=== PATIENT | male | born 1960 | race Caucasian/White ===

== ENCOUNTER 2017-07-04 09:08 | Inpatient (IN) | payer MEDICARE, OTHER ==
[~2017-07-04] VITALS: Ht 172.7 cm; Wt 72.8 kg
[~2017-07-04 09:08] MED LIST: ACET500 PO; ACYC200; ALBIPROI INH; ALBU90OI INH; AMLO5; ATOR10; ATOR10 PO; BENADRYL25 MG PO; BETA.05TC TOP; BUPR150T2; CALCAVITDA; CLON1; CLON1 PO; Cipro500 MG PO; DIPH50; DIVA500EC PO; ESCI10; ESCI20; Epzicom Tablet1 EACH PO; FLUC100 PO; Flagyl500 MG PO; GEMF600; HYDACE5 PO; HYDR1TAB94 PO; IBUP800; KALETRA; LEVOTHYROXIN; LEVSOD100; LEVSOD50; LEVSOD50 PO; Loxapine25 MG PO; MULVITMINE; OXYACE7.5T; PROM25 PO; QUET300; QUETIAPINE FUM400 MG PO; RALT400 PO; RANI150 PO; RITLOP; SUSTIVA PO; TENO300; VITB100; Zofran Odt4 MG SL; [UNRECOGNIZED DRUG - CODE]; [UNRECOGNIZED DRUG - CODE]
[2017-07-04 09:41] LABS: Source, Urine Catheter
[2017-07-04 09:44] LABS: Bilirubin, Urine Neg (Neg); Blood, Urine Neg (Neg); Glucose Qualitative, Urine Neg (Neg); Ketones, Urine Neg (Neg); Leukocyte Esterase, Urine Neg (Neg); Nitrite, Urine Neg (Neg); Protein, Urine Neg (Neg); Urobilinogen, Urine NORM (Normal)
[2017-07-04 09:47] LABS: Appearance, Urine Clear (Clear); Color, Urine Yellow (P-Yellow)
[2017-07-04 10:07] LABS: BASOPHILS ABSOLUTE AUTO 0.02 K/mm3 (0.00-0.23); BASOPHILS PERCENT AUTO 0 % (0-2); EOSINOPHILS ABSOLUTE AUTO 0.17 K/mm3 (0.00-0.68); EOSINOPHILS PERCENT AUTO 2 % (0-6); Hemoglobin 15.6 g/dL (13.5-17.5); IMMATURE GRAN ABSOLUTE AUTO 0.02 K/mm3 (0.00-0.10); IMMATURE GRAN PERCENT AUTO 0 % (0-1); LYMPHOCYTES ABSOLUTE AUTO 2.45 K/mm3 (0.84-5.20); LYMPHOCYTES PERCENT AUTO 32 % (21-46); MONOCYTES ABSOLUTE AUTO 1.13 K/mm3 (0.16-1.47); MONOCYTES PERCENT AUTO 15 % (4-13); Mean Corpuscular HGB 36.7 pg (26.0-34.0); Mean Corpuscular HGB Conc 35.5 g/dL (31.5-36.5); Mean Corpuscular Volume 104 fL (80-100); Mean Platelet Volume 10.3 fL (9.1-12.4); NEUTROPHILS ABSOLUTE AUTO 3.81 K/mm3 (1.96-9.15); NEUTROPHILS PERCENT AUTO 50 % (41-73); Platelet Count 181 K/mm3 (150-400); RDW Standard Deviation 48.8 fL (35.1-46.3); Red Blood Cell Count 4.25 M/mm3 (4.30-5.90)
[2017-07-04 10:29] LABS: Alanine Aminotransfer (ALT/SGP 20 U/L (12-78); Albumin, Blood 4.5 g/dL (3.4-5.0); Albumin/Globulin Ratio 1.3 (0.8-1.8); Alk Phos 77 U/L (50-136); Anion Gap 8 mmol/L (6-16); Aspartate Aminotrans (AST/SGOT 52 U/L (12-37); Bilirubin, Total 0.3 mg/dL (0.1-1.0); Blood Urea Nitrogen 11 mg/dL (8-24); Bun/Creatinine Ratio 16.6 (12.0-20.0); CO2, Blood 25 mmol/L (21-32); Calcium, Blood 8.6 mg/dL (8.5-10.1); Chloride, Blood 101 mmol/L (98-108); Creatinine, Blood 0.66 mg/dL (0.60-1.20); Globulin, Blood 3.4 g/dL (2.2-4.0); Glomerular Filtration Rate >60 (60-); Glucose, Blood 121 mg/dL (70-99); Potassium, Blood 4.2 mmol/L (3.5-5.5); Sodium, Blood 134 mmol/L (136-145); Total Protein, Blood 7.9 g/dL (6.4-8.2)
[2017-07-04 10:30] LABS: Free Thyroxine 0.64 ng/dL (0.70-1.60)
[2017-07-04 10:31] LABS: Prothrombin Time Results 10.4 Sec (9.7-11.5)
[2017-07-04 10:32] LABS: Thyroid Stimulating Hormone 2.31 uIU/mL (0.360-4.800)
[2017-07-04 10:47] LABS: U Amphetamine Screen Not Detected; U Barbituate Screen Not Detected; U Benzodiazapine Screen Not Detected; U Buprenorphine Screen Not Detected; U Cannabinoids Screen DETECTED; U Cocaine Screen Not Detected; U Methadone Screen Not Detected; U Methamphetamine Screen Not Detected; U Opiates Screen Not Detected; U Oxycodone Screen Not Detected; U Phencyclidine Screen Not Detected; U Propoxyphene Screen Not Detected
[2017-07-04 11:03] LABS: Influenza A Negative (NEGATIVE)
[2017-07-04 11:04] LABS: Influenza B Negative (NEGATIVE)
[2017-07-04 12:03] LABS: Appearance, CSF Clear (Clear); Color, CSF No Color (No Color)
[2017-07-04 12:12] LABS: WBC Count, CSF 0 /mm3 (0-5)
[2017-07-04 12:13] LABS: RBC Count, CSF 16 /mm3 (0-0)
[2017-07-04 12:23] LABS: Glucose, CSF 70 mg/dL (40-70)
[2017-07-04 12:35] LABS: Cryptococcus Neoformans/Gattii Not Detected (NOT DETECT); Enterovirus Not Detected (NOT DETECT); Escherichia Coli K1 Not Detected (NOT DETECT); Haemophilus Influenza Not Detected (NOT DETECT); Herpes Simplex Virus 1 Not Detected (NOT DETECT); Herpes Simplex Virus 2 Not Detected (NOT DETECT); Human Herpesvirus 6 Not Detected (NOT DETECT); Human Parechovirus Not Detected (NOT DETECT); Listeria Monocytogenes Not Detected (NOT DETECT); Neisseria Meningitidis Not Detected (NOT DETECT); Streptococcus Agalactiae Not Detected (NOT DETECT); Streptococcus Pneumoniae Not Detected (NOT DETECT); Varicella Zoster Virus Not Detected (NOT DETECT)
[2017-07-04] MEDS ORDERED: OXYC5 PO (14:45)
[2017-07-04] MEDS ORDERED: QUET300 PO (14:49)
[2017-07-04] MEDS ORDERED: CLON1 PO (15:05)
[2017-07-04] MEDS ORDERED: ABAT250V (15:06)
[2017-07-04] MEDS ORDERED: Prilosec Otc20 MG PO (15:06)
[2017-07-05 01:52] LABS: Source Blood
[2017-07-05 07:41] LABS: Lymphocytes 31.8 % (15.0-48.0); WBC 7.5 K/uL (3.8-11.0)
[2017-07-05 10:50] LABS: CD4 31.5 % (30.0-65.0); CD4, Absolute 756 /uL (490-1400)
[2017-07-06] MEDS ORDERED: CIPR500 PO (08:54)
[2017-09-20] MEDS ORDERED: PROM25 (10:42)
[2017-09-20] MEDS ORDERED: Omeprazole20 M1 PO (16:26)
[2017-09-22] MEDS ORDERED: ATOR10 PO (11:08)
[2017-09-22] MEDS ORDERED: LACT10SY PO (11:08)
== END 2017-07-06 11:00 | disposition home or self-care (01) | DRG 975 ==
LOC: ER 09:08 → ICUE 11:31 → SURS 11:31 → MEDS 11:31 → ICUE 22:54 → SURS 07-05 22:16
PROVIDERS: Emergency Medicine
PROC: 009U3ZX Drainage of Spinal Canal, Percutaneous Approach, Diagnostic (ICD-10-PCS; principal; 2017-07-04)
DX: G93.40 Encephalopathy, unspecified (principal); B20 Human immunodeficiency virus [HIV] disease; N39.0 Urinary tract infection, site not specified; F41.9 Anxiety disorder, unspecified; F32.9 Major depressive disorder, single episode, unspecified; E03.9 Hypothyroidism, unspecified; E78.5 Hyperlipidemia, unspecified; F17.200 Nicotine dependence, unspecified, uncomplicated; F43.10 Post-traumatic stress disorder, unspecified; B96.1 Klebsiella pneumoniae [K. pneumoniae] as the cause of diseases classified elsewhere; Z88.5 Allergy status to narcotic agent; Z88.8 Allergy status to other drugs, medicaments and biological substances; Z79.899 Other long term (current) drug therapy
CPT/HCPCS: 36415; 51702; 62270; 70450; 70553; 71046; 80053; 81003; 82140; 82945; 83605; 84157; 84439; 84443; 85025; 85610; 85730; 86317; 86361; 86592; 87040; 87077; 87086; 87186; 87483; 87804; 89051; 93005; 93010; 94640; 96361; 96374; 96375; 96376; 99285; A9577; J0285; J1200; J1630; J1650; J2060; J2405; J2543; J3370; J7030; J7050; J7060

== ENCOUNTER 2017-11-01 18:46 | Observation (INO) | payer MEDICARE, OTHER ==
[~2017-11-01] VITALS: Ht 175.3 cm; Wt 75.4 kg
[~2017-11-01 18:46] MED LIST changes: +ABAT250V; +CIPR500 PO; +LACT10SY PO; +OXYC5 PO; +Omeprazole20 M1 PO; +PROM25; +Prilosec Otc20 MG PO; +QUET300 PO
[2017-11-01] MEDS ORDERED: OXYC5 PO (19:04)
[2017-11-01 19:05] LABS: Source, Urine Catheter
[2017-11-01 19:06] LABS: Appearance, Urine Clear (Clear); Bilirubin, Urine Neg (Neg); Blood, Urine Neg (Neg); Color, Urine Yellow (P-Yellow); Glucose Qualitative, Urine Neg (Neg); Ketones, Urine Neg (Neg); Leukocyte Esterase, Urine Neg (Neg); Nitrite, Urine Neg (Neg); Protein, Urine Neg (Neg); Specific Gravity, Urine 1.005 (1.003-1.022); Urobilinogen, Urine NORM (Normal)
[2017-11-01 19:07] LABS: BASOPHILS ABSOLUTE AUTO 0.05 K/mm3 (0.00-0.23); BASOPHILS PERCENT AUTO 1 % (0-2); EOSINOPHILS ABSOLUTE AUTO 0.12 K/mm3 (0.00-0.68); EOSINOPHILS PERCENT AUTO 2 % (0-6); Hematocrit 42.8 % (37.0-53.0); Hemoglobin 15.1 g/dL (13.5-17.5); IMMATURE GRAN ABSOLUTE AUTO 0.02 K/mm3 (0.00-0.10); IMMATURE GRAN PERCENT AUTO 0 % (0-1); LYMPHOCYTES PERCENT AUTO 37 % (21-46); MONOCYTES ABSOLUTE AUTO 0.93 K/mm3 (0.16-1.47); MONOCYTES PERCENT AUTO 13 % (4-13); Mean Corpuscular HGB 35.5 pg (26.0-34.0); Mean Corpuscular HGB Conc 35.3 g/dL (31.5-36.5); Mean Corpuscular Volume 101 fL (80-100); Mean Platelet Volume 10.5 fL (9.1-12.4); NEUTROPHILS ABSOLUTE AUTO 3.24 K/mm3 (1.96-9.15); NEUTROPHILS PERCENT AUTO 47 % (41-73); Platelet Count 204 K/mm3 (150-400); RDW Coefficient Variation 12.6 % (11.7-14.2); RDW Standard Deviation 46.8 fL (35.1-46.3); Red Blood Cell Count 4.25 M/mm3 (4.30-5.90); White Blood Cell Count 6.96 K/mm3 (4.00-11.30)
[2017-11-01 19:21] LABS: International Normalized Ratio 1.07; Prothrombin Time Results 11.2 Sec (9.7-11.5)
[2017-11-01 19:28] LABS: Alanine Aminotransfer (ALT/SGP 16 U/L (12-78); Albumin, Blood 4.4 g/dL (3.4-5.0); Albumin/Globulin Ratio 1.2 (0.8-1.8); Alk Phos 58 U/L (50-136); Anion Gap 9 mmol/L (6-16); Aspartate Aminotrans (AST/SGOT 16 U/L (12-37); Bilirubin, Total 0.2 mg/dL (0.1-1.0); Blood Urea Nitrogen 9 mg/dL (8-24); Bun/Creatinine Ratio 13.4 (12.0-20.0); CO2, Blood 23 mmol/L (21-32); Chloride, Blood 101 mmol/L (98-108); Creatinine, Blood 0.67 mg/dL (0.60-1.20); Ethanol (Alcohol), Blood, Med <3 mg/dL; Globulin, Blood 3.7 g/dL (2.2-4.0); Glomerular Filtration Rate >60 (60-); Glucose, Blood 117 mg/dL (70-99); Potassium, Blood 3.8 mmol/L (3.5-5.5); Sodium, Blood 133 mmol/L (136-145); Total Protein, Blood 8.1 g/dL (6.4-8.2)
[2017-11-01 19:39] LABS: U Amphetamine Screen Not Detected; U Barbituate Screen Not Detected; U Benzodiazapine Screen Not Detected; U Buprenorphine Screen Not Detected; U Cannabinoids Screen DETECTED; U Cocaine Screen Not Detected; U Methadone Screen Not Detected; U Methamphetamine Screen Not Detected; U Opiates Screen Not Detected; U Oxycodone Screen Not Detected; U Phencyclidine Screen Not Detected; U Propoxyphene Screen Not Detected
[2017-11-03 08:41] LABS: Valproic Acid 33.2 ug/mL (50.0-100.0)
== END 2017-11-05 10:35 | disposition home or self-care (01) ==
LOC: ER 18:46 → MEDS 18:47 → ENPENDDIS 11-05 08:10 → MEDS 11-05 10:35
PROVIDERS: Emergency Medicine; Psychiatry & Neurology Psychiatry
DX: R41.82 Altered mental status, unspecified (principal); F41.9 Anxiety disorder, unspecified; F32.9 Major depressive disorder, single episode, unspecified; B20 Human immunodeficiency virus [HIV] disease; F43.10 Post-traumatic stress disorder, unspecified; E78.5 Hyperlipidemia, unspecified; Z72.0 Tobacco use; Z88.5 Allergy status to narcotic agent; Z88.8 Allergy status to other drugs, medicaments and biological substances; Z88.6 Allergy status to analgesic agent; Z79.899 Other long term (current) drug therapy
CPT/HCPCS: 36415; 62270; 70450; 71046; 80053; 80164; 81003; 82140; 83605; 84443; 85025; 85610; 85730; 87040; 87086; 93005; 93010; 94760; 96360; 99285; G0378; G0480; J3010; J3360; J7030

== ENCOUNTER 2018-02-16 12:06 | Inpatient (IN) | payer MEDICARE, OTHER ==
[~2018-02-16] VITALS: Ht 177.8 cm; Wt 70.7 kg
[2018-02-16 12:44] LABS: PO2 Arterial 77.2 mmHg (80-100); pH Blood Arterial 7.39 (7.35-7.45)
[2018-02-16 13:01] LABS: BASOPHILS ABSOLUTE AUTO 0.05 K/mm3 (0.00-0.23); BASOPHILS PERCENT AUTO 1 % (0-2); EOSINOPHILS ABSOLUTE AUTO 0.04 K/mm3 (0.00-0.68); EOSINOPHILS PERCENT AUTO 0 % (0-6); Hematocrit 44.6 % (37.0-53.0); Hemoglobin 15.6 g/dL (13.5-17.5); IMMATURE GRAN ABSOLUTE AUTO 0.03 K/mm3 (0.00-0.10); IMMATURE GRAN PERCENT AUTO 0 % (0-1); LYMPHOCYTES ABSOLUTE AUTO 1.87 K/mm3 (0.84-5.20); LYMPHOCYTES PERCENT AUTO 18 % (21-46); MONOCYTES ABSOLUTE AUTO 1.19 K/mm3 (0.16-1.47); MONOCYTES PERCENT AUTO 12 % (4-13); Mean Corpuscular HGB 34.6 pg (26.0-34.0); Mean Corpuscular Volume 99 fL (80-100); Mean Platelet Volume 9.9 fL (9.1-12.4); NEUTROPHILS ABSOLUTE AUTO 7.04 K/mm3 (1.96-9.15); NEUTROPHILS PERCENT AUTO 69 % (41-73); Platelet Count 315 K/mm3 (150-400); RDW Coefficient Variation 13.5 % (11.7-14.2); RDW Standard Deviation 49.6 fL (35.1-46.3); Red Blood Cell Count 4.51 M/mm3 (4.30-5.90); White Blood Cell Count 10.22 K/mm3 (4.00-11.30)
[2018-02-16 13:14] LABS: Alanine Aminotransfer (ALT/SGP 22 U/L (12-78); Albumin, Blood 4.7 g/dL (3.4-5.0); Albumin/Globulin Ratio 1.3 (0.8-1.8); Alk Phos 61 U/L (50-136); Anion Gap 9 mmol/L (6-16); Aspartate Aminotrans (AST/SGOT 33 U/L (12-37); Bilirubin, Total 0.6 mg/dL (0.1-1.0); Blood Urea Nitrogen 36 mg/dL (8-24); CO2, Blood 24 mmol/L (21-32); Calcium, Blood 9.2 mg/dL (8.5-10.1); Chloride, Blood 107 mmol/L (98-108); Creatinine, Blood 0.82 mg/dL (0.60-1.20); Globulin, Blood 3.5 g/dL (2.2-4.0); Glomerular Filtration Rate >60 (60-); Glucose, Blood 133 mg/dL (70-99); Potassium, Blood 4.1 mmol/L (3.5-5.5); Sodium, Blood 140 mmol/L (136-145); Total Protein, Blood 8.2 g/dL (6.4-8.2)
[2018-02-16 13:15] LABS: Calcium, Ionized (POC) 1.17 mmol/L (1.10-1.46); Chloride (POC) 105 mmol/L (98-108); Creatinine (POC) 0.9 mg/dL (0.8-1.3); Glucose (ISTAT POC) 131 mg/dL (70-99); Hemoglobin (POC) 16.3 g/dL (13.5-17.5); Potassium (POC) 4.2 mmol/L (3.5-5.5); Sodium (POC) 141 mmol/L (135-148); Total CO2 (POC) 25 mmol/L (21-32)
[2018-02-16 14:24] LABS: Salicylate 4.8 mg/dL (2.8-20.0)
[2018-02-16 14:27] LABS: Acetaminophen, Random <2.0 ug/mL (10.0-30.0)
[2018-02-16 14:56] LABS: Source, Urine Clean Catch
[2018-02-16 14:59] LABS: Appearance, Urine Clear (Clear); Bilirubin, Urine Neg (Neg); Blood, Urine Neg (Neg); Color, Urine Yellow (P-Yellow); Glucose Qualitative, Urine Neg (Neg); Ketones, Urine 1+ (Neg); Leukocyte Esterase, Urine 1+ (Neg); Nitrite, Urine Neg (Neg); Protein, Urine 2+ (Neg); Specific Gravity, Urine 1.025 (1.003-1.022); Urobilinogen, Urine NORM (Normal)
[2018-02-16 15:27] LABS: Bacteria Few /hpf; Mucus Light (0-Heavy); Red Blood Cells, Urine 0-2 /hpf (0-2); Squamous Epithelial Cells Few /hpf (Few)
[2018-02-16 15:31] LABS: U Amphetamine Screen Not Detected; U Barbituate Screen Not Detected; U Benzodiazapine Screen Not Detected; U Buprenorphine Screen Not Detected; U Cannabinoids Screen DETECTED; U Cocaine Screen Not Detected; U Methadone Screen Not Detected; U Methamphetamine Screen Not Detected; U Opiates Screen Not Detected; U Oxycodone Screen Not Detected; U Phencyclidine Screen Not Detected; U Propoxyphene Screen Not Detected
[2018-02-16 16:56] LABS: Valproic Acid <3.0 ug/mL (50.0-100.0)
[2018-02-16 17:44] LABS: Creatine Kinase MB 6.9 ng/mL (0.0-3.6); Creatine Kinase MB Index 0.7 (0.0-4.0)
[2018-02-17 05:10] LABS: Hematocrit 40.8 % (37.0-53.0); Hemoglobin 13.4 g/dL (13.5-17.5); Mean Corpuscular HGB 33.3 pg (26.0-34.0); Mean Corpuscular HGB Conc 32.8 g/dL (31.5-36.5); Mean Platelet Volume 10.1 fL (9.1-12.4); Platelet Count 245 K/mm3 (150-400); RDW Coefficient Variation 13.8 % (11.7-14.2); RDW Standard Deviation 51.7 fL (35.1-46.3); Red Blood Cell Count 4.02 M/mm3 (4.30-5.90); White Blood Cell Count 8.56 K/mm3 (4.00-11.30)
[2018-02-17 05:15] LABS: Mean Corpuscular Volume 102 fL (80-100)
[2018-02-17 05:52] LABS: Alanine Aminotransfer (ALT/SGP 20 U/L (12-78); Albumin, Blood 3.6 g/dL (3.4-5.0); Albumin/Globulin Ratio 1.3 (0.8-1.8); Alk Phos 45 U/L (50-136); Anion Gap 7 mmol/L (6-16); Aspartate Aminotrans (AST/SGOT 26 U/L (12-37); Bilirubin, Total 0.5 mg/dL (0.1-1.0); Blood Urea Nitrogen 23 mg/dL (8-24); Bun/Creatinine Ratio 28.9 (12.0-20.0); CO2, Blood 24 mmol/L (21-32); Calcium, Blood 7.7 mg/dL (8.5-10.1); Chloride, Blood 111 mmol/L (98-108); Globulin, Blood 2.8 g/dL (2.2-4.0); Glomerular Filtration Rate >60 (60-); Glucose, Blood 83 mg/dL (70-99); Potassium, Blood 3.7 mmol/L (3.5-5.5); Sodium, Blood 142 mmol/L (136-145); Total Protein, Blood 6.4 g/dL (6.4-8.2)
[2018-02-20 05:28] LABS: BASOPHILS ABSOLUTE AUTO 0.04 K/mm3 (0.00-0.23); BASOPHILS PERCENT AUTO 1 % (0-2); EOSINOPHILS ABSOLUTE AUTO 0.23 K/mm3 (0.00-0.68); EOSINOPHILS PERCENT AUTO 4 % (0-6); Hematocrit 39.8 % (37.0-53.0); Hemoglobin 13.5 g/dL (13.5-17.5); IMMATURE GRAN PERCENT AUTO 0 % (0-1); LYMPHOCYTES ABSOLUTE AUTO 2.72 K/mm3 (0.84-5.20); LYMPHOCYTES PERCENT AUTO 47 % (21-46); MONOCYTES ABSOLUTE AUTO 0.52 K/mm3 (0.16-1.47); MONOCYTES PERCENT AUTO 9 % (4-13); Mean Corpuscular HGB 34.5 pg (26.0-34.0); Mean Corpuscular HGB Conc 33.9 g/dL (31.5-36.5); Mean Corpuscular Volume 102 fL (80-100); NEUTROPHILS ABSOLUTE AUTO 2.25 K/mm3 (1.96-9.15); NEUTROPHILS PERCENT AUTO 39 % (41-73); Platelet Count 214 K/mm3 (150-400); RDW Coefficient Variation 13.2 % (11.7-14.2); RDW Standard Deviation 49.9 fL (35.1-46.3); Red Blood Cell Count 3.91 M/mm3 (4.30-5.90); White Blood Cell Count 5.76 K/mm3 (4.00-11.30)
[2018-02-20 05:47] LABS: Anion Gap 7 mmol/L (6-16); Blood Urea Nitrogen 12 mg/dL (8-24); Bun/Creatinine Ratio 14.8 (12.0-20.0); CO2, Blood 27 mmol/L (21-32); Calcium, Blood 8.5 mg/dL (8.5-10.1); Chloride, Blood 107 mmol/L (98-108); Creatinine, Blood 0.81 mg/dL (0.60-1.20); Glomerular Filtration Rate >60 (60-); Glucose, Blood 104 mg/dL (70-99); Potassium, Blood 3.8 mmol/L (3.5-5.5); Sodium, Blood 141 mmol/L (136-145)
[2018-02-22] MEDS ORDERED: Epzicom Tablet1 EACH PO (10:54)
[2018-02-22] MEDS ORDERED: EFAV200 PO (10:55)
[2018-02-22] MEDS ORDERED: RALT400 PO (10:56)
[2018-02-22] MEDS ORDERED: AMLO5 PO (10:57)
[2018-02-22] MEDS ORDERED: Augmentin 875-1 EACH PO (11:00)
== END 2018-02-22 14:08 | disposition home or self-care (01) | DRG 977 ==
LOC: ER 12:06 → MEDS 17:10 → ER 17:55 → MEDS 18:00
PROVIDERS: Emergency Medicine; Internal Medicine; Nurse Practitioner Acute Care
DX: B20 Human immunodeficiency virus [HIV] disease (principal); G92 Toxic encephalopathy; F02.81 Dementia in other diseases classified elsewhere, unspecified severity, with behavioral disturbance; J44.1 Chronic obstructive pulmonary disease with (acute) exacerbation; F20.2 Catatonic schizophrenia; F31.60 Bipolar disorder, current episode mixed, unspecified; J44.0 Chronic obstructive pulmonary disease with (acute) lower respiratory infection; J20.9 Acute bronchitis, unspecified; T50.905A Adverse effect of unspecified drugs, medicaments and biological substances, initial encounter; E03.9 Hypothyroidism, unspecified; I10 Essential (primary) hypertension; E78.00 Pure hypercholesterolemia, unspecified; F43.10 Post-traumatic stress disorder, unspecified; F41.9 Anxiety disorder, unspecified; F17.210 Nicotine dependence, cigarettes, uncomplicated; G24.9 Dystonia, unspecified; Z85.71 Personal history of Hodgkin lymphoma; Z91.14 Patient's other noncompliance with medication regimen; Z92.21 Personal history of antineoplastic chemotherapy; Z88.8 Allergy status to other drugs, medicaments and biological substances; Z88.5 Allergy status to narcotic agent; Z79.899 Other long term (current) drug therapy
CPT/HCPCS: 36415; 36600; 70450; 71046; 80047; 80048; 80053; 80164; 81001; 82140; 82550; 82553; 82803; 83605; 83690; 83735; 84443; 85014; 85025; 85027; 85651; 86141; 87040; 87070; 87077; 87086; 87184; 87205; 93005; 93010; 94640; 94760; 96360; 96361; 99285-25; G0480; J1200; J1650; J7030; Q0163

== ENCOUNTER 2018-06-30 14:53 | Emergency (ER) | payer MEDICARE, OTHER ==
[~2018-06-30] VITALS: Ht 172.7 cm; Wt 79.4 kg
[~2018-06-30 14:53] MED LIST changes: +AMLO5 PO; +Augmentin 875-1 EACH PO; +EFAV200 PO
[2018-06-30 15:29] LABS: BASOPHILS ABSOLUTE AUTO 0.06 K/mm3 (0.00-0.23); BASOPHILS PERCENT AUTO 1 % (0-2); EOSINOPHILS ABSOLUTE AUTO 0.05 K/mm3 (0.00-0.68); EOSINOPHILS PERCENT AUTO 1 % (0-6); Hemoglobin 17.8 g/dL (13.5-17.5); IMMATURE GRAN ABSOLUTE AUTO 0.03 K/mm3 (0.00-0.10); IMMATURE GRAN PERCENT AUTO 0 % (0-1); LYMPHOCYTES ABSOLUTE AUTO 2.66 K/mm3 (0.84-5.20); LYMPHOCYTES PERCENT AUTO 25 % (21-46); MONOCYTES ABSOLUTE AUTO 1.69 K/mm3 (0.16-1.47); MONOCYTES PERCENT AUTO 16 % (4-13); Mean Corpuscular HGB 33.8 pg (26.0-34.0); Mean Corpuscular HGB Conc 34.2 g/dL (31.5-36.5); Mean Corpuscular Volume 99 fL (80-100); Mean Platelet Volume 9.9 fL (9.1-12.4); NEUTROPHILS ABSOLUTE AUTO 6.38 K/mm3 (1.96-9.15); NEUTROPHILS PERCENT AUTO 59 % (41-73); Platelet Count 286 K/mm3 (150-400); RDW Coefficient Variation 12.4 % (11.7-14.2); Red Blood Cell Count 5.26 M/mm3 (4.30-5.90); White Blood Cell Count 10.87 K/mm3 (4.00-11.30)
[2018-06-30 15:52] LABS: Alanine Aminotransfer (ALT/SGP 29 U/L (12-78); Albumin, Blood 5.3 g/dL (3.4-5.0); Albumin/Globulin Ratio 1.3 (0.8-1.8); Alk Phos 75 U/L (50-136); Anion Gap 10 mmol/L (6-16); Aspartate Aminotrans (AST/SGOT 50 U/L (12-37); Bilirubin, Total 0.4 mg/dL (0.1-1.0); Blood Urea Nitrogen 30 mg/dL (8-24); Bun/Creatinine Ratio 29.7 (12.0-20.0); CO2, Blood 25 mmol/L (21-32); Calcium, Blood 9.4 mg/dL (8.5-10.1); Chloride, Blood 105 mmol/L (98-108); Creatinine, Blood 1.01 mg/dL (0.60-1.20); Globulin, Blood 4.1 g/dL (2.2-4.0); Glomerular Filtration Rate >60 (60-); Glucose, Blood 141 mg/dL (70-99); Sodium, Blood 140 mmol/L (136-145); Total Protein, Blood 9.4 g/dL (6.4-8.2)
[2018-06-30 18:14] LABS: Source, Urine Clean Catch
[2018-06-30 18:27] LABS: Appearance, Urine Clear (Clear); Bilirubin, Urine Neg (Neg); Blood, Urine 3+ (Neg); Color, Urine Yellow (P-Yellow); Glucose Qualitative, Urine Neg (Neg); Ketones, Urine 1+ (Neg); Leukocyte Esterase, Urine Neg (Neg); Nitrite, Urine Neg (Neg); Protein, Urine 3+ (Neg); Urobilinogen, Urine NORM (Normal)
[2018-06-30 19:10] LABS: U Amphetamine Screen Not Detected; U Barbituate Screen Not Detected; U Benzodiazapine Screen Not Detected; U Buprenorphine Screen Not Detected; U Cannabinoids Screen DETECTED; U Cocaine Screen Not Detected; U Methadone Screen Not Detected; U Methamphetamine Screen Not Detected; U Opiates Screen Not Detected; U Oxycodone Screen Not Detected; U Phencyclidine Screen Not Detected; U Propoxyphene Screen Not Detected
[2018-06-30 19:18] LABS: Bacteria Mod /hpf; Squamous Epithelial Cells Few /hpf (Few)
[2018-07-07] MEDS ORDERED: RALT400 PO (11:52)
== END 2018-06-30 19:53 | disposition home or self-care (01) ==
LOC: ER 14:53
PROVIDERS: Emergency Medicine
DX: F03.90 Unspecified dementia, unspecified severity, without behavioral disturbance, psychotic disturbance, mood disturbance, and anxiety (principal); E03.9 Hypothyroidism, unspecified; I10 Essential (primary) hypertension; E78.5 Hyperlipidemia, unspecified; F17.210 Nicotine dependence, cigarettes, uncomplicated
CPT/HCPCS: 36415; 70450; 71046; 80053; 81001; 82140; 85025; 87086; 99285-25; G0480

== ENCOUNTER 2018-07-03 09:24 | Inpatient (IN) | payer MEDICARE, OTHER ==
[~2018-07-03] VITALS: Ht 170.2 cm; Wt 81.8 kg
[2018-07-03 09:44] LABS: BASOPHILS ABSOLUTE AUTO 0.07 K/mm3 (0.00-0.23); BASOPHILS PERCENT AUTO 1 % (0-2); EOSINOPHILS ABSOLUTE AUTO 0.12 K/mm3 (0.00-0.68); EOSINOPHILS PERCENT AUTO 1 % (0-6); Hematocrit 44.5 % (37.0-53.0); Hemoglobin 15.3 g/dL (13.5-17.5); IMMATURE GRAN ABSOLUTE AUTO 0.02 K/mm3 (0.00-0.10); IMMATURE GRAN PERCENT AUTO 0 % (0-1); LYMPHOCYTES ABSOLUTE AUTO 3.17 K/mm3 (0.84-5.20); LYMPHOCYTES PERCENT AUTO 31 % (21-46); MONOCYTES ABSOLUTE AUTO 1.71 K/mm3 (0.16-1.47); MONOCYTES PERCENT AUTO 17 % (4-13); Mean Corpuscular HGB 33.8 pg (26.0-34.0); Mean Corpuscular HGB Conc 34.4 g/dL (31.5-36.5); Mean Corpuscular Volume 98 fL (80-100); Mean Platelet Volume 10.1 fL (9.1-12.4); NEUTROPHILS ABSOLUTE AUTO 5.16 K/mm3 (1.96-9.15); NEUTROPHILS PERCENT AUTO 50 % (41-73); Platelet Count 262 K/mm3 (150-400); RDW Coefficient Variation 12.4 % (11.7-14.2); Red Blood Cell Count 4.53 M/mm3 (4.30-5.90); White Blood Cell Count 10.25 K/mm3 (4.00-11.30)
[2018-07-03 09:46] LABS: PCO2 Arterial 41.3 mmHg (35-45); PO2 Arterial 75.7 mmHg (80-100); pH Blood Arterial 7.39 (7.35-7.45)
[2018-07-03 09:57] LABS: International Normalized Ratio 1.01; Prothrombin Time Results 10.4 Sec (9.7-11.5)
[2018-07-03 10:01] LABS: Alanine Aminotransfer (ALT/SGP 26 U/L (12-78); Albumin, Blood 4.5 g/dL (3.4-5.0); Albumin/Globulin Ratio 1.2 (0.8-1.8); Alk Phos 72 U/L (50-136); Anion Gap 9 mmol/L (6-16); Aspartate Aminotrans (AST/SGOT 49 U/L (12-37); Bilirubin, Total 0.2 mg/dL (0.1-1.0); Blood Urea Nitrogen 34 mg/dL (8-24); Bun/Creatinine Ratio 41.5 (12.0-20.0); CO2, Blood 24 mmol/L (21-32); Calcium, Blood 8.7 mg/dL (8.5-10.1); Chloride, Blood 101 mmol/L (98-108); Creatinine, Blood 0.82 mg/dL (0.60-1.20); Globulin, Blood 3.6 g/dL (2.2-4.0); Glomerular Filtration Rate >60 (60-); Glucose, Blood 126 mg/dL (70-99); Potassium, Blood 4.3 mmol/L (3.5-5.5); Sodium, Blood 134 mmol/L (136-145); Total Protein, Blood 8.1 g/dL (6.4-8.2); Troponin I <0.015 ng/mL (0.000-0.040)
[2018-07-03 11:55] LABS: Influenza A Negative (NEGATIVE); Influenza B Negative (NEGATIVE)
[2018-07-03 13:29] LABS: Source, Urine Clean Catch
[2018-07-03 13:33] LABS: Appearance, Urine Clear (Clear); Bilirubin, Urine Neg (Neg); Blood, Urine 2+ (Neg); Color, Urine Yellow (P-Yellow); Glucose Qualitative, Urine Neg (Neg); Ketones, Urine Neg (Neg); Leukocyte Esterase, Urine Neg (Neg); Nitrite, Urine Neg (Neg); Protein, Urine 1+ (Neg); Specific Gravity, Urine 1.025 (1.003-1.022); Urobilinogen, Urine NORM (Normal)
[2018-07-03 13:48] LABS: Red Blood Cells, Urine 0-2 /hpf (0-2); White Blood Cells, Urine Not Seen /hpf (0-5)
[2018-07-03 13:49] LABS: Bacteria Not Seen /hpf; Hyaline Casts 0-2 /lpf (0-2); Squamous Epithelial Cells Not Seen /hpf (Few)
[2018-07-03 13:53] LABS: U Amphetamine Screen Not Detected; U Barbituate Screen Not Detected; U Benzodiazapine Screen Not Detected; U Buprenorphine Screen Not Detected; U Cannabinoids Screen DETECTED; U Cocaine Screen Not Detected; U Methadone Screen Not Detected; U Methamphetamine Screen Not Detected; U Opiates Screen Not Detected; U Oxycodone Screen Not Detected; U Phencyclidine Screen Not Detected; U Propoxyphene Screen Not Detected
--- NOTE | 2018-07-03 16:05 | NUR ---
PT ARRIVAL. PT ARRIVED TO UNIT AT APROX 1500. PT A&O TO SELF, UNABLE TO TELL THIS RN THE DATE, WHO THE PRESIDENT WAS, BUT HE WAS ABLE TO STATE HE WAS IN [facility]. PT WAS ADMITTED DUE TO RESP FAILURE. PT ARRIVED ON 2L NC, PT WAS ABLE TO BE TITRATED DOWN TO RA WITH STATS >90%. PT VERY CONFUSED AND FORGETFUL, BEDALARM PLACED. TELE PLACED, ST IN THE 120'S PER CYTOGENETICIST, BP 139/95. L/C COARSE T/O AND DIM IN THE BASES. BT PRESENT AND HYPOACTIVE, ABD IS DISTENDED AND FIRM, PT STATES THIS IS NEW THE PAST FEW MONTHS. TRACE EDEMA NOTED TO THE PT'S BLE. CALL LIGHT IN REACH, BED IS LOCKED AND LOW, BED ALARM ON WILL CONINTUE TO MONITOR.
--- NOTE | 2018-07-03 19:28 | NUR ---
SHEA SUMMARY. NO ACUTE CHANGES NOTED. PT'S VS HAVE BEEN STABLE. PT DENIES ANY CHEST PAIN/PRESSURE, N/V AND IS SOB WITH ACTIVITY. PT IS VERY CONFUSED, PT STATED HE HAS NOT BEEN TAKING HIS MENTAL HEALTH MEDICATIONS NOR HIS HIV MEDICATIONS AT HOME. PT'S MOTHER CAME TO THE PT'S ROOM, ASKING FOR HELP FOR PLACEMENT TO A [facility] OR A FACILITY, PT'S MOTHER IS VERY CONCERNED FOR THE PT'S SAFTEY AND THE PT'S ABILITY TO CARE FOR HIMSELF. PT STATED IN THE PRESENCE OF THIS RN THAT HE DID NOT FEEL THAT HE COULD PROPERLY TAKE CARE OF HIMSELF AT HOME ANY LONGER AND "I NEED HELP." PT ALSO STATED THAT HE COULD NOT REMEMBER THE LAST TIME HE TOOK A SHOWER, PT'S MOTHER WAS ALSO VERY CONCERNED ABOUT THE PT'S ABILITY TO PAY HIS RENT AND OTHER BILLS. A [employer] CONSULT WAS PLACED. PT'S MOTHER VERBALIZED HER FEAR OF THE PT "FALLING THROUGH THE CRACKS AGAIN." CALL LIGHT IN REACH, BED IS LOCKED AND LOW, WILL CONTINUE TO MONITOR UNTIL REPORT IS GIVEN TO ONCOMING RN.
[2018-07-04 04:13] LABS: BASOPHILS ABSOLUTE AUTO 0.02 K/mm3 (0.00-0.23); BASOPHILS PERCENT AUTO 0 % (0-2); EOSINOPHILS PERCENT AUTO 0 % (0-6); Hematocrit 38.8 % (37.0-53.0); Hemoglobin 13.1 g/dL (13.5-17.5); IMMATURE GRAN ABSOLUTE AUTO 0.02 K/mm3 (0.00-0.10); IMMATURE GRAN PERCENT AUTO 0 % (0-1); LYMPHOCYTES ABSOLUTE AUTO 0.78 K/mm3 (0.84-5.20); LYMPHOCYTES PERCENT AUTO 10 % (21-46); MONOCYTES ABSOLUTE AUTO 0.56 K/mm3 (0.16-1.47); MONOCYTES PERCENT AUTO 7 % (4-13); Mean Corpuscular HGB 33.5 pg (26.0-34.0); Mean Corpuscular HGB Conc 33.8 g/dL (31.5-36.5); Mean Corpuscular Volume 99 fL (80-100); Mean Platelet Volume 10.2 fL (9.1-12.4); NEUTROPHILS ABSOLUTE AUTO 6.56 K/mm3 (1.96-9.15); NEUTROPHILS PERCENT AUTO 83 % (41-73); Platelet Count 208 K/mm3 (150-400); RDW Coefficient Variation 12.6 % (11.7-14.2); RDW Standard Deviation 46.1 fL (35.1-46.3); Red Blood Cell Count 3.91 M/mm3 (4.30-5.90); White Blood Cell Count 7.94 K/mm3 (4.00-11.30)
[2018-07-04 04:36] LABS: Anion Gap 8 mmol/L (6-16); Blood Urea Nitrogen 20 mg/dL (8-24); Bun/Creatinine Ratio 24.6 (12.0-20.0); CO2, Blood 26 mmol/L (21-32); Calcium, Blood 8.4 mg/dL (8.5-10.1); Chloride, Blood 105 mmol/L (98-108); Creatinine, Blood 0.81 mg/dL (0.60-1.20); Glomerular Filtration Rate >60 (60-); Glucose, Blood 145 mg/dL (70-99); Potassium, Blood 4.4 mmol/L (3.5-5.5); Sodium, Blood 139 mmol/L (136-145)
--- NOTE | 2018-07-04 05:39 | NUR ---
SHIFT SUMMARY PT WAS ALERT AND ORIENTED X 3 THROUGHOUT SHIFT. HE WAS PLEASANT AND COOPERATIVE WITH VITALS AND ASSESSMENTS. PT WAS WITHDRAWN AT TIMES, BUT CALM AND COOPERATIVE OVERALL. PT WAS ABLE TO MAKE NEEDS KNOWN AND USED HIS CALL LIGHT APPROPRIATELY. HE WAS INDEPENDENT IN THE ROOM. HE HAD A STEADY AND BALANCED GAIT. PT VITALS WERE STABLE T/O THE SHIFT AND HE DENIED ANY COMPLAINTS OF PAIN OR DISCOMFORT. PT SLEPT WELL DURING THE NIGHT, WAKING EASILY FOR VITALS AND ASSESSMENTS. PT DENIED ANY UNMET NEEDS. HE HAS 2X SIDE RAILS IN PLACE AND BED IS IN THE LOWEST POSITION. HE WILL CONTINUE TO BE MONITORED UNTIL HANDOFF TO DAYSHIFT RN.
--- NOTE | 2018-07-04 07:37 | NUR ---
PCU DAYSHIFT ASSUMED CARE OF PT APPROX 0700. PT A&OX4. ASSESSMENT COMPLETED. VITAL SIGNS STABLE. LUNGS SOUNDS COARSE T/O. PT REPORTS ABLE TO GET UP TO SHOWER THIS MORNING AND TOLERATED WELL. PT CURRENTLY SITTING AT BEDSIDE. BED IN LOW POSITION, CALL LIGHT IN REACH AND PT DENIES ANY NEEDS AT THIS TIME
--- NOTE | 2018-07-04 14:41 | NUR ---
PT HAS SOME CONFUSSION INTERMITTENTLY T/O SHIFT. OFTEN TIMES PT REPEATS STORIES AND INFORMATION. PT HAD SOME DIFFICULTY UNDERSTANDING INFORMATION RECIEVED FROM PMD AND STAFF. CONTINUED TO EDUCATE AND REINFORCE LEARNING T/O SHIFT.
--- NOTE | 2018-07-04 17:33 | NUR ---
SHIFT SUMMARY PT PLEASANT, COOEPRATIVE AND USES CALL LIGHT APPROPRIATELY. PT CONTINUED TO HAVE SOME CONFUSION INTTERMITTETNLY T/O SHIFT. OCCASIONAL INCREASED ANXIETY WITH DISCUSSING BILL AND HOME SITUATION. WAS ABLE TO PROVIDE REASSURANCE AND HELP CALM PT WITH DISCUSSION. ALL OTHER ASSESSMENT FINDINGS REMAIN UNCHANED. VITAL SIGNS REMAIN STABLE. TOP LIFT AND AUTOMATIC WINDOW REPAIRER IN TO SEE PT TODAY AND CONTACTED FAMILY. FAMILY AT BEDSIDE INTERMITTENTLY TODAY. EDUCATIONED PT AND PROVED REASSURANCE NEEDED. PT ABLE TO AMBULATE TO BATHROOM NEEDED AND TOLERATED WELL. PT CURRENTLY SITTING AT BEDSIDE TO HAVE DINNER. BED IN LOW POSITION, CALL LIGHT IN REACH AND PT DENIES ANY NEEDS AT THIS TIME. WILL CONTINUE TO MONITOR UNTIL HANDOFF TO NIGHTSHIFT RN.
--- NOTE | 2018-07-04 22:49 | NUR ---
REPORT GIVEN: PATIENT HAS BEEN PLEASENT AND COOPERATIVE THROUGHOUT THE NIGHT SO FAR. PATIENT HAS EXPRESSED SOME WORRY ABOUT HOW HE WILL PAY BILLS AT HOME. SOCIAL SERVICE IS SEEING PATIENT. PATIENT TO BE TRANSFERED TO ROOM 228. REPORT GIVEN TO BRIANDA GANN RN AT THIS TIME.
--- NOTE | 2018-07-04 23:36 | NUR ---
TRANSFER NOTE: PATIENT TRANSFERED TO ROOM 228 AT THIS TIME VIA WHEELCHAIR BY MULUGETA WOODWARD. ALL BELONINGS GATHERED AND SENT WITH PATIENT.
--- NOTE | 2018-07-04 23:41 | NUR ---
ASSUMED CARE. PT ARRIVES TO 228 FROM PCU. PT A/O AND INDEPENDENT IN ROOM. DENIES ANY C/O JUST WANTS A SANDWICH. LS ARE COARSE T/O MORE SO ON LEFT LOBE. ON RA AND DENIES AN SOB. ORIENTED TO NEW ROOM. CALL LIGHT IN REACH.
[2018-07-05 05:06] LABS: BASOPHILS ABSOLUTE AUTO 0.06 K/mm3 (0.00-0.23); BASOPHILS PERCENT AUTO 1 % (0-2); EOSINOPHILS ABSOLUTE AUTO 0.11 K/mm3 (0.00-0.68); EOSINOPHILS PERCENT AUTO 2 % (0-6); Hematocrit 40.1 % (37.0-53.0); Hemoglobin 13.5 g/dL (13.5-17.5); IMMATURE GRAN ABSOLUTE AUTO 0.01 K/mm3 (0.00-0.10); IMMATURE GRAN PERCENT AUTO 0 % (0-1); LYMPHOCYTES ABSOLUTE AUTO 2.78 K/mm3 (0.84-5.20); LYMPHOCYTES PERCENT AUTO 39 % (21-46); MONOCYTES ABSOLUTE AUTO 0.72 K/mm3 (0.16-1.47); MONOCYTES PERCENT AUTO 10 % (4-13); Mean Corpuscular HGB 34.4 pg (26.0-34.0); Mean Corpuscular HGB Conc 33.7 g/dL (31.5-36.5); Mean Corpuscular Volume 102 fL (80-100); NEUTROPHILS ABSOLUTE AUTO 3.46 K/mm3 (1.96-9.15); NEUTROPHILS PERCENT AUTO 49 % (41-73); Platelet Count 212 K/mm3 (150-400); RDW Coefficient Variation 12.7 % (11.7-14.2); RDW Standard Deviation 48.1 fL (35.1-46.3); Red Blood Cell Count 3.93 M/mm3 (4.30-5.90); White Blood Cell Count 7.14 K/mm3 (4.00-11.30)
--- NOTE | 2018-07-05 05:21 | NUR ---
PT WAS A PCU TRANSFER THIS SHIFT. HAS DENIED ANY C/O SINCE ARRIVAL. DENIES ANY SOB AND REMAINS ON RA. PT IS INDEPENDENT IN ROOM. TOLERATING PO AND VOIDING WELL. PROBABLE DC HOME TODAY. CALL LIGHT IN REACH. PT SITTING ON SIDE OF BED SIPPING ON COFFEE.
[2018-07-05 05:35] LABS: Anion Gap 7 mmol/L (6-16); Blood Urea Nitrogen 23 mg/dL (8-24); Bun/Creatinine Ratio 24.4 (12.0-20.0); CO2, Blood 27 mmol/L (21-32); Calcium, Blood 8.5 mg/dL (8.5-10.1); Chloride, Blood 104 mmol/L (98-108); Creatinine, Blood 0.94 mg/dL (0.60-1.20); Glomerular Filtration Rate >60 (60-); Glucose, Blood 100 mg/dL (70-99); Potassium, Blood 4.3 mmol/L (3.5-5.5); Sodium, Blood 138 mmol/L (136-145)
--- NOTE | 2018-07-05 07:31 | NUR ---
pt awake laying in bed stated his stomach was upset after drinking some coffee this am had some diarrhea he stated this is normal for him at home pt stated his breathing feels better today ls with coarse crackles and rhonchi to lll and coarse to r lll cl to upper lobe bilat pt concearned about going home and losing his ability to live at home vs assisted living ss to come talk with pt
--- NOTE | 2018-07-05 10:01 | NUR ---
dr harris by to see pt also talked with pt mother re discharge via phone ss also discussing options
[2018-07-05] MEDS ORDERED: Zithromax250 MG PO (11:59)
--- NOTE | 2018-07-05 15:39 | NUR ---
discharge instructions reviewed with pt verbalized instructions also reviewed with pt's mom earlier rx called to [facility] and faxed [facility] escort to car
[2018-07-07] MEDS ORDERED: RALT400 PO (11:52)
== END 2018-07-05 15:47 | disposition home health service (06) | DRG 189 ==
LOC: ER 09:24 → PCU 11:16 → SURS 07-04 22:49
PROVIDERS: Emergency Medicine; ADMIT Hospitalist
DX: J96.21 Acute and chronic respiratory failure with hypoxia (principal); J44.1 Chronic obstructive pulmonary disease with (acute) exacerbation; B20 Human immunodeficiency virus [HIV] disease; F33.40 Major depressive disorder, recurrent, in remission, unspecified; E03.9 Hypothyroidism, unspecified; K21.9 Gastro-esophageal reflux disease without esophagitis; I10 Essential (primary) hypertension; E78.5 Hyperlipidemia, unspecified; F43.10 Post-traumatic stress disorder, unspecified; F41.8 Other specified anxiety disorders; F17.210 Nicotine dependence, cigarettes, uncomplicated; Z85.71 Personal history of Hodgkin lymphoma
CPT/HCPCS: 36415; 36600; 71045; 80048; 80053; 81001; 82140; 82803; 83605; 83880; 84484; 85025; 85610; 85730; 87040; 87086; 87804; 93005; 93010; 94640; 94644; 94660; 94760; 96361; 96365; 96367; 99285-25; J0456; J0696; J1650; J2920; J3480; J7050

== ENCOUNTER 2018-07-07 10:41 | Observation (INO) | payer MEDICARE, OTHER ==
[~2018-07-07] VITALS: Ht 175.3 cm; Wt 78.4 kg
[~2018-07-07 10:41] MED LIST changes: +Zithromax250 MG PO
[2018-07-07 11:42] LABS: BASOPHILS ABSOLUTE AUTO 0.07 K/mm3 (0.00-0.23); BASOPHILS PERCENT AUTO 1 % (0-2); EOSINOPHILS PERCENT AUTO 1 % (0-6); Hemoglobin 16.3 g/dL (13.5-17.5); IMMATURE GRAN ABSOLUTE AUTO 0.03 K/mm3 (0.00-0.10); IMMATURE GRAN PERCENT AUTO 0 % (0-1); LYMPHOCYTES ABSOLUTE AUTO 2.66 K/mm3 (0.84-5.20); LYMPHOCYTES PERCENT AUTO 29 % (21-46); MONOCYTES ABSOLUTE AUTO 1.17 K/mm3 (0.16-1.47); MONOCYTES PERCENT AUTO 13 % (4-13); Mean Corpuscular HGB 34.1 pg (26.0-34.0); Mean Corpuscular HGB Conc 34.7 g/dL (31.5-36.5); Mean Platelet Volume 9.8 fL (9.1-12.4); NEUTROPHILS ABSOLUTE AUTO 5.31 K/mm3 (1.96-9.15); NEUTROPHILS PERCENT AUTO 57 % (41-73); Platelet Count 332 K/mm3 (150-400); RDW Coefficient Variation 12.4 % (11.7-14.2); RDW Standard Deviation 45.1 fL (35.1-46.3); Red Blood Cell Count 4.78 M/mm3 (4.30-5.90); White Blood Cell Count 9.34 K/mm3 (4.00-11.30)
[2018-07-07] MEDS ORDERED: LEVSOD50 PO (11:48)
[2018-07-07] MEDS ORDERED: CLON1 PO (11:49)
[2018-07-07] MEDS ORDERED: DIVA500ER PO ×2 (11:49→11:52)
[2018-07-07] MEDS ORDERED: Loxapine25 MG PO ×2 (11:50)
[2018-07-07] MEDS ORDERED: ATOR10 PO (11:50)
[2018-07-07 11:51] LABS: Mean Corpuscular Volume 98 fL (80-100)
[2018-07-07] MEDS ORDERED: EFAV200 PO (11:51)
[2018-07-07] MEDS ORDERED: QUET300 PO (11:51)
[2018-07-07] MEDS ORDERED: OMEPRAZOLE MAGN20 MG PO (11:52)
[2018-07-07] MEDS ORDERED: RALT400 PO ×2 (11:52)
[2018-07-07] MEDS ORDERED: AMLO5 PO (11:53)
[2018-07-07 12:03] LABS: Alanine Aminotransfer (ALT/SGP 28 U/L (12-78); Albumin, Blood 4.3 g/dL (3.4-5.0); Alk Phos 75 U/L (50-136); Anion Gap 8 mmol/L (6-16); Aspartate Aminotrans (AST/SGOT 15 U/L (12-37); Bilirubin, Total 0.6 mg/dL (0.1-1.0); Blood Urea Nitrogen 21 mg/dL (8-24); Bun/Creatinine Ratio 20.4 (12.0-20.0); CO2, Blood 23 mmol/L (21-32); Calcium, Blood 9.2 mg/dL (8.5-10.1); Chloride, Blood 99 mmol/L (98-108); Creatinine, Blood 1.03 mg/dL (0.60-1.20); Globulin, Blood 4.3 g/dL (2.2-4.0); Glomerular Filtration Rate >60 (60-); Glucose, Blood 113 mg/dL (70-99); Potassium, Blood 4.4 mmol/L (3.5-5.5); Sodium, Blood 130 mmol/L (136-145); Total Protein, Blood 8.6 g/dL (6.4-8.2)
[2018-07-07 12:30] LABS: Source, Urine Clean Catch
[2018-07-07 12:35] LABS: Bilirubin, Urine Neg (Neg); Blood, Urine Neg (Neg); Glucose Qualitative, Urine Neg (Neg); Ketones, Urine Neg (Neg); Leukocyte Esterase, Urine Neg (Neg); Nitrite, Urine Neg (Neg); Protein, Urine Neg (Neg); Specific Gravity, Urine 1.005 (1.003-1.022); Urobilinogen, Urine NORM (Normal); pH, Urine 6.5 (5.0-8.0)
[2018-07-07 12:41] LABS: Appearance, Urine Clear (Clear); Color, Urine Yellow (P-Yellow)
[2018-07-07 12:55] LABS: U Amphetamine Screen Not Detected; U Barbituate Screen Not Detected; U Benzodiazapine Screen Not Detected; U Buprenorphine Screen Not Detected; U Cannabinoids Screen Not Detected; U Cocaine Screen Not Detected; U Methadone Screen Not Detected; U Methamphetamine Screen Not Detected; U Opiates Screen Not Detected; U Oxycodone Screen Not Detected; U Phencyclidine Screen Not Detected; U Propoxyphene Screen Not Detected
[2018-07-07 15:08] LABS: Free Thyroxine 1.29 ng/dL (0.70-1.60)
[2018-07-07 15:11] LABS: Thyroid Stimulating Hormone 1.64 uIU/mL (0.360-4.800)
--- NOTE | 2018-07-07 15:22 | NUR ---
Echocardioghram completed.
[2018-07-07 20:55] LABS: Influenza A Negative (NEGATIVE); Influenza B Negative (NEGATIVE)
--- NOTE | 2018-07-08 01:37 | NUR ---
07/07/182012 PT LYING IN BED, DENIES ANY DISCOMFORT FOR THIS SHIFT. TELE IS ST AT 126, GAVE HS MEDS AND KLOPONIN, WILL EVAL FOR EFFECT. NO OTHER APPARENT SIGNS OF DISTRESS. CALL LIGHT IS IN REACH.
--- NOTE | 2018-07-08 01:39 | NUR ---
07/07/18 2325 PT'S HEART RATE NOW 108. PT LYING IN BED, AWAKE, WATCHING TV. NO APPARENT SIGNS OF DISTRESS. CALL LIGHT IS IN REACH. 07/08/18 0120 PER PCU DIRECTOR ADULT, PT'S HR AT THIS TIME IS 100. PT LYING IN BED, EYES CLOSED, APPEARS TO BE RESTING. BREATHING IS EVEN, UNLABORED. NO APPARENT SIGNS OF DISTRESS. CALL LIGHT IS IN REACH.
--- NOTE | 2018-07-08 03:30 | NUR ---
PT IS AAO X 4, THOUGH A LITTLE MENTALLY SLOW. DENIED DISCOMFORT FOR THIS SHIFT. ON RA. TELE ST, 126 AT START OF SHIFT BUT 108, 100 AFTER THAT. PT REPORTS A NON PRODUCTIVE "SMOKERS" COUGH.
--- NOTE | 2018-07-08 03:30 | NUR ---
PT LYING IN BED, EYES CLOSED, APPEARS TO BE RESTING. BREATHING IS EVEN, UNLABORED. ON APPARENT SIGNS OF DISTRESS. CALL LIGHT IS IN REACH.
--- NOTE | 2018-07-08 05:41 | NUR ---
PT SITTING ON EDGE OF BED, AWAKE, NO APPARENT SIGNS OF DISTRESS. DENIES NEED FOR ANYTHING AT THIS TIME. CALL LIGHT IS IN REACH. NO OTHER CHANGES THIS SHIFT.
[2018-07-08 06:02] LABS: Hematocrit 39.8 % (37.0-53.0); Hemoglobin 13.5 g/dL (13.5-17.5); Mean Corpuscular HGB 33.8 pg (26.0-34.0); Mean Corpuscular HGB Conc 33.9 g/dL (31.5-36.5); Mean Corpuscular Volume 100 fL (80-100); Mean Platelet Volume 10.1 fL (9.1-12.4); Platelet Count 255 K/mm3 (150-400); RDW Coefficient Variation 12.6 % (11.7-14.2); RDW Standard Deviation 46.3 fL (35.1-46.3); Red Blood Cell Count 3.99 M/mm3 (4.30-5.90); White Blood Cell Count 8.43 K/mm3 (4.00-11.30)
[2018-07-08 06:39] LABS: Alanine Aminotransfer (ALT/SGP 21 U/L (12-78); Albumin, Blood 3.4 g/dL (3.4-5.0); Alk Phos 56 U/L (50-136); Anion Gap 6 mmol/L (6-16); Aspartate Aminotrans (AST/SGOT 12 U/L (12-37); Bilirubin, Total 0.4 mg/dL (0.1-1.0); Blood Urea Nitrogen 18 mg/dL (8-24); Bun/Creatinine Ratio 21.2 (12.0-20.0); CO2, Blood 24 mmol/L (21-32); Calcium, Blood 7.9 mg/dL (8.5-10.1); Chloride, Blood 105 mmol/L (98-108); Creatinine, Blood 0.85 mg/dL (0.60-1.20); Globulin, Blood 3.3 g/dL (2.2-4.0); Glomerular Filtration Rate >60 (60-); Glucose, Blood 95 mg/dL (70-99); Sodium, Blood 135 mmol/L (136-145); Total Protein, Blood 6.7 g/dL (6.4-8.2)
--- NOTE | 2018-07-08 09:55 | NUR ---
I entered patient's room as patient was returning to bed. I introduced myself and stated the purpose of the visit. Patient invited me stay but only briefly because he said he had a rough night and was headed back to bed hoping for some more sleep. Patient stated his concerns about finding placement in a intermediate. I listened empathically, provided anxiety containment and provided prayer. Patient said that he would "take all that I prayed" for him. He thanked me for the visit.
--- NOTE | 2018-07-08 12:45 | NUR ---
NOTIFIED DR. ZAPATA TELE CALLED AND REPORTED PT'S HR 140-150. PT WAS UP IN THE RESTROOM. RECHECKED PT'S HR WHEN PT BACK FROM THE BATHROOM. HR 132, RESP 20, 95% ON RA. PT REPORTS HE FEELS ANXIOUS BECAUSE HIS PARENTS WERE JUST IN VISITING. PT DENIES CHEST PAIN/DISCOMFORT. PT DENIES SOB. NOTIFIED OF SITUATION. DR. ZAPATA ORDERED PO 25MG METOPROLOL BID. HOLD FOR SYSTOLIC BP UNDER 100 AND/OR HR UNDER 60. NO OTHER NEW ORDERS AT THIS TIME.
--- NOTE | 2018-07-08 18:17 | NUR ---
SHIFT SUMMARY- PT DENIES PAIN. DENIES N/V. DENIES SOB. DYSPNEA UPON EXERTION. 97% ON RA. HR SPIKED BETWEEN 140-150 PER PCU VEHICLE SERVICE ATTENDANT. DR. ZAPATA NOTIFIED. DR. ZAPATA ORDERED METOPROLOL. SEE PREVIOUS NOTE. MEDS GIVEN PER EMAR. CALLED TELE AGAIN AT 1600 AND THEY REPORTED NSR IN THE 90'S. PT REPORTED ANXIETY THIS AFTERNOON. MEDS GIVEN PER EMAR. INDEPENDENT IN THE ROOM. NO OTHER SIGNIFICANT CHANGES THIS SHIFT.
--- NOTE | 2018-07-09 04:08 | NUR ---
SHIFT SUMMARY PATIENT HAD NO ACUTE CHANGES OBSERVED THIS SHIFT. AOX X3 AND INDEPENDENT IN THE ROOM. DENIES PAIN, SOB, AND N/V. TAKES MEDS WHOLE WITH WATER AND USES URINAL AT BEDSIDE. PIV REMAINS INTACT. NOTE TAKER REPORTS ST100. PATIENT DENIES ANXIETY. VSS/AFEBRILE. PATIENT REPORTS WANTING TO GO TO [facility] BECAUSE HE IS UNABLE TO CARE FOR SELF AND IS WORKING WITH COTTON AGENT. CALL LIGHT IN REACH. BED IN LOWEST POSITION. WILL CONTINUE TO MONITOR UNTIL DAY SHIFT NURSE ASSUMES CARE.
[2018-07-09 05:25] LABS: Anion Gap 4 mmol/L (6-16); Blood Urea Nitrogen 22 mg/dL (8-24); Bun/Creatinine Ratio 23.8 (12.0-20.0); CO2, Blood 27 mmol/L (21-32); Calcium, Blood 8.3 mg/dL (8.5-10.1); Chloride, Blood 107 mmol/L (98-108); Creatinine, Blood 0.93 mg/dL (0.60-1.20); Glomerular Filtration Rate >60 (60-); Glucose, Blood 98 mg/dL (70-99); Sodium, Blood 138 mmol/L (136-145)
--- NOTE | 2018-07-09 18:27 | NUR ---
PATIENT WAITING PLACEMENT. NO CHANGES THIS SHIFT. PATIENT C/O FARMER. TYLENOL GIVEN. NO OTHER COMPLAINTS. SLEPT IN ROOM MOST OF SHIFT. PARENTS VISITED.
[2018-07-09 22:06] LABS: % CD 4 POS. LYMPH. 50.4 % (30.8-58.5); ABSOLUTE CD 4 HELPER 1915 /uL (359-1519); BASOS 1 % (Not Estab.); EOS 1 % (Not Estab.); EOS (ABSOLUTE) 0.1 x10E3/uL (0.0-0.4); HEMATOCRIT 44.1 % (37.5-51.0); HEMOGLOBIN 15.1 g/dL (13.0-17.7); IMMATURE GRANULOCYTES 0 % (Not Estab.); LYMPHS 43 % (Not Estab.); LYMPHS (ABSOLUTE) 3.8 x10E3/uL (0.7-3.1); MCH 33.9 pg (26.6-33.0); MCHC 34.2 g/dL (31.5-35.7); MCV 99 fL (79-97); MONOCYTES 10 % (Not Estab.); MONOCYTES(ABSOLUTE) 0.9 x10E3/uL (0.1-0.9); NEUTROPHILS 45 % (Not Estab.); PLATELETS 318 x10E3/uL (150-379); RBC 4.45 x10E6/uL (4.14-5.80); RDW 13.9 % (12.3-15.4); WBC 8.9 x10E3/uL (3.4-10.8)
--- NOTE | 2018-07-10 04:11 | NUR ---
SHIFT SUMMARY PATIENT HAD NO ACUTE CHANGES OBSERVED THIS SHIFT. AXOX 3 AND INDEPENDENT IN THE ROOM. PIV REMANS INTACT. SPINNER CAP FRAME RPEORTS NSR 97. DENIES PAIN, SOB, AND N/V.VSS/AFEBRILE. AWAITING PLACEMENT. CALL LIGHT IN REACH. WILL CONTINUE TO MONITOR UNTIL DAY SHIFT RM ASUMES CARE.
--- NOTE | 2018-07-10 17:22 | NUR ---
PATIENT HAS HAD NO COMPLAINTS THIS SHIFT. HAS SLEPT OR STAYED IN HIS ROOM THROUGHOUT THE DAY. NO CHANGES IN CONDITION. AWAITING PLACEMENT.
--- NOTE | 2018-07-11 04:02 | NUR ---
SHIFT SUMMARY PATIENT HAD NO ACUTE CHANGES OBSERVED DURING THE SHIFT. AXOX 4 AND INDEPENDENT IN THE ROOM. USES URINAL AT BS. DENIES PAIN, SOB, AND N/V. REPORTS WAITING FOR PLACEMENT. VSS/AFEBRILE. PIV REMAINS INTACT. CARRY OUT CLERK REPORTS NSR 87. CALL LIGHT IN REACH. BED IN LOWEST POSITION. WILL CONTINUE TO MONITOR UNTIL DAY SHIFT NURSE ASSUMES CARE.
[2018-07-11] MEDS ORDERED: ACET325 PO (17:05)
[2018-07-11] MEDS ORDERED: CALCIUM 600 +1 EAC4 PO (17:06)
[2018-07-11] MEDS ORDERED: DOCU100 PO (17:07)
[2018-07-11] MEDS ORDERED: NICO21TP TOP (17:08)
[2018-07-11] MEDS ORDERED: ROBITUSSIN COU237 ML PO (17:08)
[2018-07-11] MEDS ORDERED: METO50 PO (17:09)
--- NOTE | 2018-07-11 18:30 | NUR ---
DISCHARGE INSTRUCTIONS COMPLETED AND DISCUSSED WITH PT EXPRESSING UNDERSTANDING. SCRIPTS FAXED TO [facility]. MOTHER HERE TO PICK PT UP. TO [facility] VIA W/C.
== END 2018-07-11 18:28 | disposition home or self-care (01) ==
LOC: ER 10:41 → MEDS 10:42 → ENPENDDIS 07-11 16:41 → MEDS 07-11 18:28
PROVIDERS: Emergency Medicine; Family Medicine; Physician Assistant; ADMIT Internal Medicine
DX: R53.1 Weakness (principal); J96.90 Respiratory failure, unspecified, unspecified whether with hypoxia or hypercapnia; J44.0 Chronic obstructive pulmonary disease with (acute) lower respiratory infection; J20.9 Acute bronchitis, unspecified; F31.9 Bipolar disorder, unspecified; R14.0 Abdominal distension (gaseous); I10 Essential (primary) hypertension; E03.9 Hypothyroidism, unspecified; E78.5 Hyperlipidemia, unspecified; F41.9 Anxiety disorder, unspecified; F43.10 Post-traumatic stress disorder, unspecified; F17.210 Nicotine dependence, cigarettes, uncomplicated; R00.0 Tachycardia, unspecified; B20 Human immunodeficiency virus [HIV] disease; E83.51 Hypocalcemia; Z79.899 Other long term (current) drug therapy; Z88.5 Allergy status to narcotic agent; Z88.6 Allergy status to analgesic agent; Z88.8 Allergy status to other drugs, medicaments and biological substances; Z85.71 Personal history of Hodgkin lymphoma
CPT/HCPCS: 36415; 71046; 74018; 80048; 80053; 81003; 82140; 82947; 83605; 83735; 83880; 84145; 84439; 84443; 85025; 85027; 86361; 86403; 87804; 93005; 93010; 93306; 94640; 94760; 96360; 96361; 96372; 99285-25; G0378; J1650; J7030

== ENCOUNTER 2018-09-16 16:57 | Inpatient (IN) | payer MEDICARE, OTHER ==
[~2018-09-16] VITALS: Ht 177.8 cm; Wt 82.4 kg
[~2018-09-16 16:57] MED LIST changes: +ACET325 PO; +CALCIUM 600 +1 EAC4 PO; +DIVA500ER PO; +DOCU100 PO; +METO50 PO; +NICO21TP TOP; +OMEPRAZOLE MAGN20 MG PO; +ROBITUSSIN COU237 ML PO
[2018-09-16 17:50] LABS: BASOPHILS ABSOLUTE AUTO 0.08 K/mm3 (0.00-0.23); BASOPHILS PERCENT AUTO 1 % (0-2); EOSINOPHILS ABSOLUTE AUTO 0.06 K/mm3 (0.00-0.68); EOSINOPHILS PERCENT AUTO 1 % (0-6); Hematocrit 53.8 % (37.0-53.0); Hemoglobin 18.8 g/dL (13.5-17.5); IMMATURE GRAN ABSOLUTE AUTO 0.01 K/mm3 (0.00-0.10); IMMATURE GRAN PERCENT AUTO 0 % (0-1); LYMPHOCYTES ABSOLUTE AUTO 2.81 K/mm3 (0.84-5.20); LYMPHOCYTES PERCENT AUTO 31 % (21-46); MONOCYTES ABSOLUTE AUTO 1.22 K/mm3 (0.16-1.47); MONOCYTES PERCENT AUTO 14 % (4-13); Mean Corpuscular HGB 34.2 pg (26.0-34.0); Mean Corpuscular HGB Conc 34.9 g/dL (31.5-36.5); Mean Corpuscular Volume 98 fL (80-100); Mean Platelet Volume 10.5 fL (9.1-12.4); NEUTROPHILS ABSOLUTE AUTO 4.82 K/mm3 (1.96-9.15); NEUTROPHILS PERCENT AUTO 54 % (41-73); Platelet Count 249 K/mm3 (150-400); RDW Coefficient Variation 13.2 % (11.7-14.2); Red Blood Cell Count 5.49 M/mm3 (4.30-5.90)
[2018-09-16 18:18] LABS: Alanine Aminotransfer (ALT/SGP 22 U/L (12-78); Albumin, Blood 5.4 g/dL (3.4-5.0); Albumin/Globulin Ratio 1.3 (0.8-1.8); Alk Phos 81 U/L (50-136); Anion Gap 8 mmol/L (6-16); Aspartate Aminotrans (AST/SGOT 12 U/L (12-37); Bilirubin, Total 0.4 mg/dL (0.1-1.0); Blood Urea Nitrogen 17 mg/dL (8-24); Bun/Creatinine Ratio 18.7 (12.0-20.0); CO2, Blood 25 mmol/L (21-32); Calcium, Blood 9.8 mg/dL (8.5-10.1); Chloride, Blood 104 mmol/L (98-108); Creatinine, Blood 0.91 mg/dL (0.60-1.20); Globulin, Blood 4.1 g/dL (2.2-4.0); Glomerular Filtration Rate >60 (60-); Glucose, Blood 125 mg/dL (70-99); Potassium, Blood 3.9 mmol/L (3.5-5.5); Sodium, Blood 137 mmol/L (136-145); Total Protein, Blood 9.5 g/dL (6.4-8.2)
[2018-09-17 02:38] LABS: Adenovirus Not Detected (NOT DETECT); Bordetella pertussis Not Detected (NOT DETECT); Chlamydophila pneumoniae Not Detected (NOT DETECT); Coronavirus 229E Not Detected (NOT DETECT); Coronavirus HKU1 Not Detected (NOT DETECT); Coronavirus NL63 Not Detected (NOT DETECT); Coronavirus OC43 Not Detected (NOT DETECT); Human Metapneumovirus Not Detected (NOT DETECT); Human Rhinovirus/Enterovirus Not Detected (NOT DETECT); Influenza A Not Detected (NOT DETECT); Influenza A/2009-H1 Not Detected (NOT DETECT); Influenza A/H1 Not Detected (NOT DETECT); Influenza A/H3 Not Detected (NOT DETECT); Influenza B Not Detected (NOT DETECT); Mycoplasma pneumoniae Not Detected (NOT DETECT); Parainfluenza Virus 1 Not Detected (NOT DETECT); Parainfluenza Virus 2 Not Detected (NOT DETECT); Parainfluenza Virus 3 Not Detected (NOT DETECT); Parainfluenza Virus 4 Not Detected (NOT DETECT); Respiratory Syncytial Virus Not Detected (NOT DETECT)
[2018-09-17 02:53] LABS: Source, Urine Clean Catch
[2018-09-17 03:04] LABS: Blood, Urine 2+ (Neg); Glucose Qualitative, Urine Neg (Neg); Ketones, Urine 2+ (Neg); Leukocyte Esterase, Urine 1+ (Neg); Nitrite, Urine Neg (Neg); Protein, Urine 3+ (Neg); Specific Gravity, Urine 1.025 (1.003-1.022); Urobilinogen, Urine NORM (Normal)
[2018-09-17 03:10] LABS: Amorphous Light (0-Heavy); Appearance, Urine Hazy (Clear); Bacteria Mod /hpf; Bilirubin, Urine 1+ (Neg); Color, Urine Amber (P-Yellow); Granular Casts 0-2 /lpf (0); Mucus Mod (0-Heavy); Red Blood Cells, Urine 0-2 /hpf (0-2); Squamous Epithelial Cells Not Seen /hpf (Few); WBC Cast 0-2 /lpf (0)
[2018-09-17 03:17] LABS: U Amphetamine Screen Not Detected; U Barbituate Screen Not Detected; U Benzodiazapine Screen Not Detected; U Buprenorphine Screen Not Detected; U Cannabinoids Screen DETECTED; U Cocaine Screen Not Detected; U Methadone Screen Not Detected; U Methamphetamine Screen Not Detected; U Opiates Screen Not Detected; U Oxycodone Screen Not Detected; U Phencyclidine Screen Not Detected; U Propoxyphene Screen Not Detected
[2018-09-17 04:45] LABS: Hemoglobin 16.8 g/dL (13.5-17.5); Mean Corpuscular HGB 33.8 pg (26.0-34.0); Mean Corpuscular HGB Conc 34.3 g/dL (31.5-36.5); Mean Corpuscular Volume 99 fL (80-100); Mean Platelet Volume 10.3 fL (9.1-12.4); Platelet Count 212 K/mm3 (150-400); RDW Coefficient Variation 13.5 % (11.7-14.2); RDW Standard Deviation 48.7 fL (35.1-46.3); Red Blood Cell Count 4.97 M/mm3 (4.30-5.90); White Blood Cell Count 9.63 K/mm3 (4.00-11.30)
[2018-09-17 05:05] LABS: Alanine Aminotransfer (ALT/SGP 23 U/L (12-78); Albumin, Blood 4.8 g/dL (3.4-5.0); Albumin/Globulin Ratio 1.3 (0.8-1.8); Alk Phos 71 U/L (50-136); Anion Gap 9 mmol/L (6-16); Aspartate Aminotrans (AST/SGOT 13 U/L (12-37); Bilirubin, Total 0.4 mg/dL (0.1-1.0); Blood Urea Nitrogen 20 mg/dL (8-24); Bun/Creatinine Ratio 23.2 (12.0-20.0); CO2, Blood 23 mmol/L (21-32); Calcium, Blood 8.7 mg/dL (8.5-10.1); Chloride, Blood 106 mmol/L (98-108); Creatinine, Blood 0.86 mg/dL (0.60-1.20); Globulin, Blood 3.8 g/dL (2.2-4.0); Glomerular Filtration Rate >60 (60-); Glucose, Blood 143 mg/dL (70-99); Potassium, Blood 4.2 mmol/L (3.5-5.5); Sodium, Blood 138 mmol/L (136-145); Total Protein, Blood 8.6 g/dL (6.4-8.2)
--- NOTE | 2018-09-17 06:47 | NUR ---
PCU NOC SHIFT SUMMARY PATIENT ARRIVED TO UNIT AND AMBULATED INTO BED. PATIENT STARES BLANKLEY FORWARD AND ANSWERS SOME QUESTIONS BUT THEN DOES NOT ANSWER OTHERS. PATIENT STEADY ON HIS FEET BUT UNMINDFUL OF CORDS AND TUBING. BED ALARM AND CHAIR ALARM PLACED. PATIENT UP EVERY 20-30 MINUTES MOVING FROM BED TO CHAIR AND SETTING OFF ALARM. PATIENT IS DIRECTABLE AND FOLLOWS SOME DIRECTIONS WITH MULTIPLE PROMPTS. VSS. PATIENT IS SWEATING PROFUSELY T/O SHIFT - DIAPHORETIC. MILD TREMORS NOTED AT TIMES. PATIENT IS SINUS TACH ON MONITOR MD CODY CALLED AND HOME DOES OF METOPROLOL STARTED THIS SHIFT. PATIENTS IV RUNNING NS PER EMAR. WILL CONTINUE TO MONITOR AND GIVE REPORT TO KAYA BALDERRAMA.
[2018-09-17] MEDS ORDERED: BENADRYL25 MG PO (10:27)
[2018-09-17] MEDS ORDERED: ALBU3IS INH (10:32)
[2018-09-17] MEDS ORDERED: TERB250 PO (10:32)
--- NOTE | 2018-09-17 18:34 | NUR ---
SHIFT SUMMARY CHUNG WAS MORE CONFUSED AND AGITATED THIS MORNING, HIS ARMS AND LEGS SHAKING AND HIS RR AROUND 40. DR ARMENDARIZ CAME TO BEDSIDE AND ASSESSED. HIS AGITATION AND SHAKINESS AND RR ARE MUCH IMPROVED AFTER ADDING HOME BENZODIAZEPINES. PT ALERT AND MOSTLY ORIENTED (CANNOT STATE YEAR OR EXACT SITUATION, BUT KNOWS HE IS IN HOSPITAL), BUT HIS REASONING IS IMPAIRED. INDEPENDENT IN HIS ROOM THIS AFTERNOON AFTER MIVF DC'D, STEADY ON HIS FEET WITH NO DIZZINESS. TELE SHOWED ST @120. RED AND FLUSHED FACE, PER HIS FAMILY, THIS IS A COMMON THING. NEEDS ENCOURAGEMENT TO EAT. FAMILY VISITED. HAD BM PER PT.COMPLAINED OF BACK PAIN AND RECEIVED TYLENOL. TOOK MEDS PRESCRIBED. WCTM
[2018-09-18 03:56] LABS: BASOPHILS ABSOLUTE AUTO 0.02 K/mm3 (0.00-0.23); BASOPHILS PERCENT AUTO 0 % (0-2); EOSINOPHILS ABSOLUTE AUTO 0.01 K/mm3 (0.00-0.68); EOSINOPHILS PERCENT AUTO 0 % (0-6); Hemoglobin 14.9 g/dL (13.5-17.5); IMMATURE GRAN ABSOLUTE AUTO 0.04 K/mm3 (0.00-0.10); IMMATURE GRAN PERCENT AUTO 0 % (0-1); LYMPHOCYTES ABSOLUTE AUTO 1.22 K/mm3 (0.84-5.20); LYMPHOCYTES PERCENT AUTO 14 % (21-46); MONOCYTES PERCENT AUTO 8 % (4-13); Mean Corpuscular HGB Conc 33.1 g/dL (31.5-36.5); Mean Corpuscular Volume 103 fL (80-100); Mean Platelet Volume 10.5 fL (9.1-12.4); NEUTROPHILS ABSOLUTE AUTO 6.92 K/mm3 (1.96-9.15); NEUTROPHILS PERCENT AUTO 78 % (41-73); Platelet Count 197 K/mm3 (150-400); RDW Coefficient Variation 13.6 % (11.7-14.2); RDW Standard Deviation 52.5 fL (35.1-46.3); Red Blood Cell Count 4.38 M/mm3 (4.30-5.90); White Blood Cell Count 8.91 K/mm3 (4.00-11.30)
[2018-09-18 04:12] LABS: Anion Gap 11 mmol/L (6-16); Blood Urea Nitrogen 22 mg/dL (8-24); Bun/Creatinine Ratio 29.9 (12.0-20.0); CO2, Blood 24 mmol/L (21-32); Calcium, Blood 8.9 mg/dL (8.5-10.1); Chloride, Blood 102 mmol/L (98-108); Creatinine, Blood 0.74 mg/dL (0.60-1.20); Glomerular Filtration Rate >60 (60-); Glucose, Blood 135 mg/dL (70-99); Sodium, Blood 137 mmol/L (136-145)
--- NOTE | 2018-09-18 05:59 | NUR ---
PT VSS T/O NIGHT, HR TACHY 100-120; PT DENIED CP/PRESSURE. SATS >90% ON RA. LUNGS COARSE W/LOOSE UNPROD COUGH. BREATHING TX CONT PER RT. PT DENIED PAIN T/O NIGHT. PT LUIS REG PO, NO C/O N/V. PT AMB INDEP IN ROOM, IS USING CALL LIGHT FOR ASSISTANCE, WILL CONT TO MONITOR UNTIL REP GIVEN TO ONCOMING RN.
--- NOTE | 2018-09-18 14:21 | NUR ---
NOTE PT RESTING QUIETLY. EYES CLOSED. PT PARENTS HERE TO SEE HIM. PARENTS ARE ELDERLY AND MOM NEEDS HELP FINDING HER WAY. PARENTS THINK THAT [facility] WILL HOUSE PT FOR THEM UNTIL A NEW LIVING SITUATION CAN BE FOUND FOR HIM. VSS. LUNGS DIM T/O. NO COUGH. PT IS GOING TO TAKE A SHOWER AFTER A NAP. PT DENIED PAIN OR DIZZINESS. EATING WELL. FLAT AFFECT. SHORT VERBAL INTERACTIONS. POOR EYE CONTACT. UP AD JADE. GAIT STEADY. CONTINUE POT.
--- NOTE | 2018-09-18 18:30 | NUR ---
EVENING NOTE PT ALERT, ORIENTED. SR. PT TOLERATED A SHOWER WELL. LUNGS CONTINUE TO BE CLEAR, RA. NO COUGH NOTED. PT DENIED SOB DURING SHOWER. PT ALLOWED THIS NURSE TO SHAVE HIM AND LEAVE MUSTACHE INTACT. VSS. AFTER SHOWER TOOK A COUPLE HOUR NAP. PT LOOKING FORWARD TO MOVING INTO A NEW LIVING ENVIROMENT. CONTINUE POT.
--- NOTE | 2018-09-18 22:26 | NUR ---
PROVIDER CONTACTED- PT WITH MULTIPLE LOOSE STOOLS THIS AFTERNOON/EVENING. REQUESTING DIEARRHEA MEDICATION. DR CHEN CONTACTED AND ORDERS RECEIVED FOR IMODIUM AND CDIFF SPECIMEN TO LAB IF DIARRHEA PERSISTS OR BECOMES WATERY. WILL INPUT ORDERS AND CONTINUE MONITORING.
--- NOTE | 2018-09-19 06:34 | NUR ---
SHIFT SUMMARY- PT HAS REMAINED AOX4 THROUGHOUT SHIFT. VSS. PLEASANT AND COOPERATIVE WITH CARE. C-DIFF NEGATIVE AND PT REPORTS IMPROVEMENT TO DIARRHEA WITH ONE DOSE OF IMMODIUM. PT CONTINUES TO AMBULATE INDEPENDENTLY TO RESTROOM WITHOUT DIFFICULTY. AFFECT DID BRIGHTEN SLIGHTLY THROUGHOUT THE NIGHT WHEN VISITING WITH PATIENT. PT RESTED WELL THROUGHOUT MUCH OF THE NIGHT. NO OTHER CHANGES FROM INITIAL ASSESSMENT. WILL CONTINUE TO MONITOR AND REPORT TO ONCOMING SHIFT RN. BED IN LOW POSITION, CALL LIGHT IN REACH.
--- NOTE | 2018-09-19 12:14 | NUR ---
PT RESTING IN BED THIS AM. ALERT AND ORIENTED X3. LUNG SOUNDS EXPIRATORY WHEEZES / COARSE THROUGHOUT. NSR / ST ON TELE, RATE 80s-100s. DENIES PAIN THROUGHOUT THE DAY. PT STABLE FOR TRANSFER TO SURGICAL FLOOR. REPORT PROVIDED TO SIN KIRKPATRICK ON SURGICAL FLOOR.
--- NOTE | 2018-09-19 13:39 | NUR ---
PT ADMITTED TO ROOM 230 PT IS SITTING AT THE EDGE OF THE BED WATCHING TV, A&O X4, RESP UNLABORED, ON ROOM AIR. PT IS UP AD JADE IN ROOM, CALL LIGHT IN REACH. NO REQUESTS AT THIS TIME, WCTM.
--- NOTE | 2018-09-20 05:17 | NUR ---
SUMMARY: ADMIT DAY 4 BILATERAL PNEUMONIA ON HOSPITALIST SERVICE. PT INDEPENDANT IN ROOM. VSS, AFEBRILE, NON-PRODUCTIVE COUGH, LUNG SOUNDS COARSE IN UPPER LOBES. TOLERATING PO INTAKE WELL; VOIDING CLEAR, YELLOW. SURVEY DATA TECHNICIAN AND DISCHARGE PLANNING CONTINUE TO WORK WITH PT FOR ADULT [facility] HOME PLACEMENT AFTER DC.
[2018-09-20] MEDS ORDERED: LEVO750 PO (15:42)
[2018-09-20] MEDS ORDERED: METO25ER PO (15:43)
== END 2018-09-20 15:58 | disposition home or self-care (01) | DRG 974 ==
LOC: ER 16:57 → PCU 23:14 → SURS 09-19 12:41
PROVIDERS: Hospitalist; Physician Assistant; ADMIT Internal Medicine
DX: A41.9 Sepsis, unspecified organism (principal); G92 Toxic encephalopathy; B20 Human immunodeficiency virus [HIV] disease; J18.9 Pneumonia, unspecified organism; J44.1 Chronic obstructive pulmonary disease with (acute) exacerbation; J44.0 Chronic obstructive pulmonary disease with (acute) lower respiratory infection; C81.90 Hodgkin lymphoma, unspecified, unspecified site; N39.0 Urinary tract infection, site not specified; Z21 Asymptomatic human immunodeficiency virus [HIV] infection status; K21.9 Gastro-esophageal reflux disease without esophagitis; F41.9 Anxiety disorder, unspecified; E78.5 Hyperlipidemia, unspecified; E03.9 Hypothyroidism, unspecified; I10 Essential (primary) hypertension; F31.9 Bipolar disorder, unspecified; F43.10 Post-traumatic stress disorder, unspecified; R00.0 Tachycardia, unspecified; F17.210 Nicotine dependence, cigarettes, uncomplicated; Z88.5 Allergy status to narcotic agent; Z88.8 Allergy status to other drugs, medicaments and biological substances; Z79.899 Other long term (current) drug therapy
CPT/HCPCS: 36415; 71046; 80048; 80053; 81001; 83605; 83735; 83880; 84145; 85025; 85027; 87040; 87086; 87486; 87493; 87581; 87633; 87798; 93005; 93010; 94640; 94667; 94760; 96361; 96365; 96366; 96368; 99285-25; G0480; J0456; J0696; J1650; J1956; J2543; J2930; J7030; J7050; J7060; Q0163

== ENCOUNTER 2019-06-28 13:05 | Emergency (ER) | payer MEDICARE, OTHER ==
[~2019-06-28] VITALS: Ht 175.3 cm; Wt 77.1 kg
[~2019-06-28 13:05] MED LIST changes: +ALBU3IS INH; +LEVO750 PO; +METO25ER PO; +TERB250 PO
[2019-06-28] MEDS ORDERED: Klonopin1 MG PO (14:10)
[2019-06-28] MEDS ORDERED: Synthroid50 MCG PO (14:10)
[2019-06-28] MEDS ORDERED: ATOR40TA PO (14:10)
[2019-06-28] MEDS ORDERED: Loxapine25 MG PO (14:10)
[2019-06-28] MEDS ORDERED: DIVA500ER PO (14:10)
[2019-06-28] MEDS ORDERED: Toprol Xl25 MG PO (14:10)
[2019-06-28] MEDS ORDERED: QUET300 PO (14:10)
[2019-06-28] MEDS ORDERED: PIFELTRO100 MG PO (14:10)
== END 2019-06-28 14:17 | disposition home or self-care (01) ==
LOC: ER 13:05
DX: F31.9 Bipolar disorder, unspecified (principal); F41.9 Anxiety disorder, unspecified; Z76.0 Encounter for issue of repeat prescription; B20 Human immunodeficiency virus [HIV] disease; F43.10 Post-traumatic stress disorder, unspecified; I10 Essential (primary) hypertension; J44.9 Chronic obstructive pulmonary disease, unspecified; E78.5 Hyperlipidemia, unspecified; Z88.5 Allergy status to narcotic agent; Z88.8 Allergy status to other drugs, medicaments and biological substances; Z79.899 Other long term (current) drug therapy; Z87.891 Personal history of nicotine dependence
CPT/HCPCS: 99281

== ENCOUNTER 2019-07-19 14:18 | Emergency (ER) | payer MEDICARE, OTHER ==
[~2019-07-19] VITALS: Ht 175.3 cm; Wt 81.7 kg
[~2019-07-19 14:18] MED LIST changes: +ATOR40TA PO; +Klonopin1 MG PO; +PIFELTRO100 MG PO; +Synthroid50 MCG PO; +Toprol Xl25 MG PO
[2019-07-19] MEDS ORDERED: BIKTARVY 50-201 EACH PO (14:50)
[2019-07-19 16:01] LABS: BASOPHILS ABSOLUTE AUTO 0.04 K/mm3 (0.00-0.23); BASOPHILS PERCENT AUTO 1 % (0-2); EOSINOPHILS ABSOLUTE AUTO 0.08 K/mm3 (0.00-0.68); EOSINOPHILS PERCENT AUTO 1 % (0-6); Hemoglobin 16.6 g/dL (13.5-17.5); IMMATURE GRAN ABSOLUTE AUTO 0.02 K/mm3 (0.00-0.10); IMMATURE GRAN PERCENT AUTO 0 % (0-1); LYMPHOCYTES ABSOLUTE AUTO 2.12 K/mm3 (0.84-5.20); LYMPHOCYTES PERCENT AUTO 31 % (21-46); MONOCYTES ABSOLUTE AUTO 1.09 K/mm3 (0.16-1.47); MONOCYTES PERCENT AUTO 16 % (4-13); Mean Corpuscular HGB 33.5 pg (26.0-34.0); Mean Corpuscular HGB Conc 33.9 g/dL (31.5-36.5); Mean Corpuscular Volume 99 fL (80-100); Mean Platelet Volume 9.7 fL (9.1-12.4); NEUTROPHILS ABSOLUTE AUTO 3.43 K/mm3 (1.96-9.15); NEUTROPHILS PERCENT AUTO 51 % (41-73); Platelet Count 252 K/mm3 (150-400); RDW Coefficient Variation 13.4 % (11.7-14.2); RDW Standard Deviation 49.1 fL (35.1-46.3); Red Blood Cell Count 4.95 M/mm3 (4.30-5.90); White Blood Cell Count 6.78 K/mm3 (4.00-11.30)
[2019-07-19 16:23] LABS: Alanine Aminotransfer (ALT/SGP 30 U/L (12-78); Albumin, Blood 4.4 g/dL (3.4-5.0); Albumin/Globulin Ratio 1.4 (0.8-1.8); Alk Phos 63 U/L (50-136); Anion Gap 5 mmol/L (6-16); Aspartate Aminotrans (AST/SGOT 19 U/L (12-37); Bilirubin, Total 0.4 mg/dL (0.1-1.0); Blood Urea Nitrogen 15 mg/dL (8-24); Bun/Creatinine Ratio 20.6 (12.0-20.0); CO2, Blood 28 mmol/L (21-32); Calcium, Blood 8.9 mg/dL (8.5-10.1); Chloride, Blood 105 mmol/L (98-108); Creatinine, Blood 0.73 mg/dL (0.60-1.20); Globulin, Blood 3.1 g/dL (2.2-4.0); Glomerular Filtration Rate >60 (60-); Glucose, Blood 91 mg/dL (70-99); Potassium, Blood 4.4 mmol/L (3.5-5.5); Sodium, Blood 138 mmol/L (136-145); Total Protein, Blood 7.5 g/dL (6.4-8.2)
[2019-07-19 16:29] LABS: Valproic Acid 16.9 ug/mL (50.0-100.0)
[2019-07-19] MEDS ORDERED: Klonopin1 MG PO (16:51)
[2019-07-19] MEDS ORDERED: QUET25 PO (17:03)
[2019-07-19] MEDS ORDERED: DIVA500EC PO (17:03)
[2019-07-19 17:11] LABS: U Amphetamine Screen Not Detected; U Barbituate Screen Not Detected; U Benzodiazapine Screen Not Detected; U Buprenorphine Screen Not Detected; U Cannabinoids Screen Not Detected; U Cocaine Screen Not Detected; U Methadone Screen Not Detected; U Methamphetamine Screen Not Detected; U Opiates Screen Not Detected; U Oxycodone Screen Not Detected; U Phencyclidine Screen Not Detected; U Propoxyphene Screen Not Detected
== END 2019-07-19 17:19 | disposition home or self-care (01) ==
LOC: ER 14:18
PROVIDERS: Emergency Medicine
DX: B20 Human immunodeficiency virus [HIV] disease (principal); F31.9 Bipolar disorder, unspecified; I10 Essential (primary) hypertension; E78.5 Hyperlipidemia, unspecified; F43.10 Post-traumatic stress disorder, unspecified; J44.9 Chronic obstructive pulmonary disease, unspecified; F41.9 Anxiety disorder, unspecified; Z88.5 Allergy status to narcotic agent; Z88.8 Allergy status to other drugs, medicaments and biological substances; Z79.899 Other long term (current) drug therapy; Z79.51 Long term (current) use of inhaled steroids; Z87.891 Personal history of nicotine dependence
CPT/HCPCS: 36415; 80053; 80164; 85025; 93005; 93010; 99284-25

== ENCOUNTER 2020-06-16 08:33 | Emergency (ER) | payer MEDICARE, OTHER ==
[~2020-06-16] VITALS: Ht 180.3 cm; Wt 81.7 kg
[~2020-06-16 08:33] MED LIST changes: +BIKTARVY 50-201 EACH PO; +QUET25 PO
[2020-06-16] MEDS ORDERED: Klonopin1 MG PO (09:45)
[2020-06-16] MEDS ORDERED: ALBU90OI INH (09:45)
[2020-06-16] MEDS ORDERED: Loxapine25 MG PO (10:38)
== END 2020-06-16 11:02 | disposition home or self-care (01) ==
LOC: ER 08:33
DX: R05 Cough (principal); Z76.0 Encounter for issue of repeat prescription; J44.9 Chronic obstructive pulmonary disease, unspecified; I10 Essential (primary) hypertension; E78.5 Hyperlipidemia, unspecified; F31.9 Bipolar disorder, unspecified; F41.9 Anxiety disorder, unspecified; F43.10 Post-traumatic stress disorder, unspecified; F17.210 Nicotine dependence, cigarettes, uncomplicated; Z21 Asymptomatic human immunodeficiency virus [HIV] infection status; Z88.5 Allergy status to narcotic agent; Z88.6 Allergy status to analgesic agent; Z88.8 Allergy status to other drugs, medicaments and biological substances; Z79.899 Other long term (current) drug therapy
CPT/HCPCS: 71046; 99283-25

== ENCOUNTER 2020-07-01 12:41 | Emergency (ER) | payer MEDICARE, OTHER ==
[~2020-07-01] VITALS: Ht 175.3 cm; Wt 81.2 kg
[2020-07-01] MEDS ORDERED: Cleocin HCl300 MG PO (15:05)
== END 2020-07-01 15:16 | disposition home or self-care (01) ==
LOC: ER 12:41
DX: L02.212 Cutaneous abscess of back [any part, except buttock and flank] (principal); Z88.5 Allergy status to narcotic agent; Z88.6 Allergy status to analgesic agent; Z88.8 Allergy status to other drugs, medicaments and biological substances; Z21 Asymptomatic human immunodeficiency virus [HIV] infection status; Z79.899 Other long term (current) drug therapy; F17.210 Nicotine dependence, cigarettes, uncomplicated
CPT/HCPCS: 10060; 99283-25

== ENCOUNTER 2020-09-05 08:37 | Observation (INO) | payer OTHER ==
[~2020-09-05] VITALS: Ht 175.3 cm; Wt 82.3 kg
[~2020-09-05 08:37] MED LIST changes: +BIKTARVY 50-201 EAC1 PO; -BIKTARVY 50-201 EACH PO; +Cleocin HCl300 MG PO
[2020-09-05 09:19] LABS: BASOPHILS ABSOLUTE AUTO 0.03 K/mm3 (0.00-0.23); BASOPHILS PERCENT AUTO 1 % (0-2); EOSINOPHILS PERCENT AUTO 2 % (0-6); Hematocrit 49.3 % (37.0-53.0); Hemoglobin 16.6 g/dL (13.5-17.5); IMMATURE GRAN ABSOLUTE AUTO 0.02 K/mm3 (0.00-0.10); IMMATURE GRAN PERCENT AUTO 0 % (0-1); LYMPHOCYTES ABSOLUTE AUTO 1.95 K/mm3 (0.84-5.20); LYMPHOCYTES PERCENT AUTO 36 % (21-46); MONOCYTES ABSOLUTE AUTO 0.72 K/mm3 (0.16-1.47); MONOCYTES PERCENT AUTO 13 % (4-13); Mean Corpuscular HGB 34.4 pg (26.0-34.0); Mean Corpuscular HGB Conc 33.7 g/dL (31.5-36.5); Mean Corpuscular Volume 102 fL (80-100); Mean Platelet Volume 9.8 fL (9.1-12.4); NEUTROPHILS ABSOLUTE AUTO 2.62 K/mm3 (1.96-9.15); NEUTROPHILS PERCENT AUTO 48 % (41-73); Platelet Count 199 K/mm3 (150-400); RDW Coefficient Variation 13.3 % (11.7-14.2); RDW Standard Deviation 50.9 fL (35.1-46.3); Red Blood Cell Count 4.82 M/mm3 (4.30-5.90); White Blood Cell Count 5.44 K/mm3 (4.00-11.30)
[2020-09-05] MEDS ORDERED: OMEP20ER PO (09:21)
[2020-09-05 09:33] LABS: International Normalized Ratio 1.03
[2020-09-05 09:37] LABS: Alanine Aminotransfer (ALT/SGP 23 U/L (12-78); Albumin, Blood 3.9 g/dL (3.4-5.0); Albumin/Globulin Ratio 1.2 (0.8-1.8); Alk Phos 58 U/L (50-136); Anion Gap 4 mmol/L (6-16); Aspartate Aminotrans (AST/SGOT 11 U/L (12-37); Bilirubin, Total 0.4 mg/dL (0.1-1.0); Blood Urea Nitrogen 17 mg/dL (8-24); CO2, Blood 30 mmol/L (21-32); Calcium, Blood 9.1 mg/dL (8.5-10.1); Chloride, Blood 109 mmol/L (98-108); Ethanol (Alcohol), Blood, Med <3 mg/dL; Globulin, Blood 3.2 g/dL (2.2-4.0); Glomerular Filtration Rate >60 (60-); Glucose, Blood 95 mg/dL (70-99); Potassium, Blood 4.6 mmol/L (3.5-5.5); Sodium, Blood 143 mmol/L (136-145); Total Protein, Blood 7.1 g/dL (6.4-8.2)
[2020-09-05 09:40] LABS: Valproic Acid 126.4 ug/mL (50.0-100.0)
[2020-09-05 09:52] LABS: U Amphetamine Screen Not Detected; U Barbituate Screen Not Detected; U Benzodiazapine Screen DETECTED; U Buprenorphine Screen Not Detected; U Cannabinoids Screen DETECTED; U Cocaine Screen Not Detected; U Methadone Screen Not Detected; U Methamphetamine Screen Not Detected; U Opiates Screen Not Detected; U Oxycodone Screen Not Detected; U Phencyclidine Screen Not Detected
[2020-09-05 09:53] LABS: U Propoxyphene Screen Not Detected
[2020-09-05 13:08] LABS: Valproic Acid 97.2 ug/mL (50.0-100.0)
--- NOTE | 2020-09-05 15:51 | NUR ---
PHYSICIAN UPDATED PHYSICIAN INFORMED OF PT'S HIGH AMMONIA LEVEL. NO LACTULOSE ORDERED AT THIS TIME. PER POISON CONTROL HIGH VALPRIOC LEVELS CAN INCREASE AMMONIA LEVELS. AMMONIA LABS SCHEDULED AT THIS TIME. WILL CONTINUE TO MONITOR.
--- NOTE | 2020-09-05 16:47 | NUR ---
POISON CONTROL SPOKE WITH POISON CONTROL REGARDING VALPROIC ACID AND AMMONIA LEVELS. POISON CONTROL REP FAXING OVER INFORMATION FOR L-CARNATINE AT THIS TIME. WILL CONTINUE TO MONITOR.
[2020-09-05 17:23] LABS: Valproic Acid 80.3 ug/mL (50.0-100.0)
--- NOTE | 2020-09-05 18:06 | NUR ---
SHIFT SUMMARY PT ARRIVED TO UNIT FROM ED DURING SHIFT. PT ALERT TO SELF AND FAMILY. ALERT TO LOCATION AT TIMES. GARBLED SPEECH. IN CONTACT WITH POISON CONTROL, SEE NOTES. PT NPO AT THIS TIME FOR SWALLOW EVAL IN AM D/T POSSIBLE ASPIRATION WHILE IN ED. HR STABLE. BP STABLE. OXYGEN SATURATION MAINTAINED ABOVE 92% ON RA. BED ALARM IN PLACE. UNABLE TO OBTAIN HX D/T PT'S CURRENT COGNITIVE STATUS. WILL CONTINUE TO MONITOR UNTIL REPORT GIVEN TO NIGHTSHIFT RN.
--- NOTE | 2020-09-05 19:00 | NUR ---
PT BELONGINGS PT BROUGHT MED BAG WITH HIM TO ED. PT MED BAG LOCKED IN PT ROOM IN LOCKED DOOR AT THIS TIME. INFORMED PROJECT MANAGER INTERIOR DESIGN RN.
--- NOTE | 2020-09-05 19:15 | NUR ---
ASSUMED CARE RECEIVED BEDSIDE REPORT FROM ABDOULAYERN; PT DENIES CHEST PAIN; VSS; O2 SATS >93 ON RA; PT IS A&O X 2; STATES BIRTHDATE; REQUESTING FOOD; CAMERA ON AND CONFIRMED W/ PAID SEARCH MANAGER; BED ALARM ON FOR SAFETY; NO DISTRESS NOTED; CALL LIGHT IN REACH; BED IN LOWEST POSITION.
--- NOTE | 2020-09-05 21:33 | NUR ---
UPDATE PT BECOMING INCREASINGLY IMPULSIVE; BED ALARM ON; SPOKE TO HOPE AT POISON CONTROL; DISCUSSED LAB VALUES TRENDING DOWN; RECOMMENDATION STILL TO GIVE L-CARNITINE; NOTIFIED ELIANE WHALEY; NEW ORDERS TO ADMINISTER PER PHARMACY AND POISON CONTROL RECOMMENDATIONS; NEW DOSAGE FOR ATIVAN ORDER; REFER TO EMAR; SPOKE TO ROMAN IN PHARMACY TO CONSULT ON DOSAGE OF L-CARNITINE; LIMITED SUPPLY AVAILABLE; PT REORIENTED TO CALL LIGHT IN REACH; BED IN LOWEST POSITION; BED ALARM AND CAMERA ON.
--- NOTE | 2020-09-06 04:38 | NUR ---
SHIFT SUMMARY PT A&O X 2-3; BECOMING CLEARER T/O SHIFT; DENIES CHEST PAIN; VSS; O2 SATS >93 ON RA; COARSE LUNG SOUNDS; NON-PRODUCTIVE COUGH NOTED; ASSISTING PT W/ URINAL IN STANDING POSITION AT BEDSIDE; AMMONIA AND VALPROIC ACID TRENDING DOWN; L-CARNITINE ADMINISTERED PER EMAR; NS @ 75 IN L AC; NO DISTRESS NOTED; CALL LIGHT IN REACH; BED IN LOWEST POSITION; WILL CONTINUE TO MONITOR CLOSELY UNTIL HAND OFF TO DAY SHIFT RN.
[2020-09-06 05:01] LABS: BASOPHILS ABSOLUTE AUTO 0.06 K/mm3 (0.00-0.23); BASOPHILS PERCENT AUTO 1 % (0-2); EOSINOPHILS ABSOLUTE AUTO 0.13 K/mm3 (0.00-0.68); EOSINOPHILS PERCENT AUTO 2 % (0-6); Hematocrit 47.9 % (37.0-53.0); Hemoglobin 15.9 g/dL (13.5-17.5); IMMATURE GRAN ABSOLUTE AUTO 0.03 K/mm3 (0.00-0.10); IMMATURE GRAN PERCENT AUTO 1 % (0-1); LYMPHOCYTES ABSOLUTE AUTO 2.11 K/mm3 (0.84-5.20); LYMPHOCYTES PERCENT AUTO 36 % (21-46); MONOCYTES ABSOLUTE AUTO 0.67 K/mm3 (0.16-1.47); MONOCYTES PERCENT AUTO 11 % (4-13); Mean Corpuscular HGB Conc 33.2 g/dL (31.5-36.5); Mean Corpuscular Volume 102 fL (80-100); Mean Platelet Volume 10.1 fL (9.1-12.4); NEUTROPHILS ABSOLUTE AUTO 2.94 K/mm3 (1.96-9.15); NEUTROPHILS PERCENT AUTO 50 % (41-73); Platelet Count 179 K/mm3 (150-400); RDW Coefficient Variation 13.2 % (11.7-14.2); RDW Standard Deviation 50.2 fL (35.1-46.3); Red Blood Cell Count 4.68 M/mm3 (4.30-5.90); White Blood Cell Count 5.94 K/mm3 (4.00-11.30)
[2020-09-06 05:22] LABS: Alanine Aminotransfer (ALT/SGP 21 U/L (12-78); Albumin, Blood 3.7 g/dL (3.4-5.0); Albumin/Globulin Ratio 1.3 (0.8-1.8); Alk Phos 57 U/L (50-136); Anion Gap 4 mmol/L (6-16); Aspartate Aminotrans (AST/SGOT 14 U/L (12-37); Bilirubin, Total 0.6 mg/dL (0.1-1.0); Blood Urea Nitrogen 16 mg/dL (8-24); Bun/Creatinine Ratio 16.9 (12.0-20.0); CO2, Blood 30 mmol/L (21-32); Calcium, Blood 8.6 mg/dL (8.5-10.1); Chloride, Blood 109 mmol/L (98-108); Creatinine, Blood 0.95 mg/dL (0.60-1.20); Globulin, Blood 2.9 g/dL (2.2-4.0); Glomerular Filtration Rate >60 (60-); Glucose, Blood 107 mg/dL (70-99); Potassium, Blood 3.9 mmol/L (3.5-5.5); Sodium, Blood 143 mmol/L (136-145); Total Protein, Blood 6.6 g/dL (6.4-8.2)
--- NOTE | 2020-09-06 13:00 | NUR ---
DISCHARGE NOTE: PT ALERT AND ORIENTED X 3-4 FORGETFUL AT TIMES. TELE SHOWING SINUS WITH HR 80-90'S. DENIES CHEST PAIN. ON ROOM AIR SATING ABOVE 92%. MILD SOB WITH EXERTION. DENIES OVERALL PAIN. SHOWER THIS AM. USING URINAL AND BATHROOM WITH SUPERVISION. BED ALARM AND CAMERA ON FOR SAFETY. EDUCATED PT ON SAFETY AND CALL LIGHT. DISCHARGE INSTRUCTIONS REVIEWED, QUESTIONS ANSWERED. IV TAKEN OUT PER PROTOCOL. HOME MEDICATIONS PT BROUGHT IN GIVEN BACK AND WITH PATIENT UPON LEAVING UNIT. PT'S MOM TO FISH FILLETER PATIENT, DISCHARGING HOME AND WHEELED PUT VIA WHEELCHAIR.
[2020-09-06] MEDS ORDERED: EUTHYROX50 MCG PO (13:03)
== END 2020-09-06 13:30 | disposition home or self-care (01) ==
LOC: ER 08:37 → PCU 08:38
PROVIDERS: Nurse Practitioner Acute Care; Physician Assistant; ADMIT Internal Medicine
DX: G92 Toxic encephalopathy (principal); B20 Human immunodeficiency virus [HIV] disease; F02.80 Dementia in other diseases classified elsewhere, unspecified severity, without behavioral disturbance, psychotic disturbance, mood disturbance, and anxiety; F41.9 Anxiety disorder, unspecified; F31.9 Bipolar disorder, unspecified; I10 Essential (primary) hypertension; E78.5 Hyperlipidemia, unspecified; E03.9 Hypothyroidism, unspecified; J44.9 Chronic obstructive pulmonary disease, unspecified; F17.210 Nicotine dependence, cigarettes, uncomplicated; Z88.6 Allergy status to analgesic agent; Z88.5 Allergy status to narcotic agent; Z88.8 Allergy status to other drugs, medicaments and biological substances; Z85.71 Personal history of Hodgkin lymphoma
CPT/HCPCS: 36415; 70450; 71045; 80053; 80164; 82140; 82947; 84145; 85025; 85610; 93005; 93010; 96361; 96365; 96366; 96374; 96375; 96376; 99285-25; A9270; G0378; G0480; J2060; J7030

== ENCOUNTER 2020-09-09 12:06 | Observation (INO) | payer OTHER ==
[~2020-09-09] VITALS: Ht 175.3 cm; Wt 82.4 kg
[~2020-09-09 12:06] MED LIST changes: +EUTHYROX50 MCG PO; +OMEP20ER PO
[2020-09-09 13:39] LABS: BASOPHILS ABSOLUTE AUTO 0.05 K/mm3 (0.00-0.23); BASOPHILS PERCENT AUTO 0 % (0-2); EOSINOPHILS ABSOLUTE AUTO 0.09 K/mm3 (0.00-0.68); EOSINOPHILS PERCENT AUTO 1 % (0-6); Hematocrit 44.7 % (37.0-53.0); Hemoglobin 15.5 g/dL (13.5-17.5); IMMATURE GRAN ABSOLUTE AUTO 0.08 K/mm3 (0.00-0.10); IMMATURE GRAN PERCENT AUTO 1 % (0-1); LYMPHOCYTES PERCENT AUTO 16 % (21-46); MONOCYTES ABSOLUTE AUTO 1.86 K/mm3 (0.16-1.47); MONOCYTES PERCENT AUTO 11 % (4-13); Mean Corpuscular HGB 34.8 pg (26.0-34.0); Mean Corpuscular HGB Conc 34.7 g/dL (31.5-36.5); Mean Corpuscular Volume 100 fL (80-100); Mean Platelet Volume 10.5 fL (9.1-12.4); NEUTROPHILS ABSOLUTE AUTO 11.73 K/mm3 (1.96-9.15); NEUTROPHILS PERCENT AUTO 72 % (41-73); Platelet Count 152 K/mm3 (150-400); RDW Coefficient Variation 12.9 % (11.7-14.2); RDW Standard Deviation 47.8 fL (35.1-46.3); Red Blood Cell Count 4.46 M/mm3 (4.30-5.90); White Blood Cell Count 16.41 K/mm3 (4.00-11.30)
[2020-09-09 14:18] LABS: Alanine Aminotransfer (ALT/SGP 20 U/L (12-78); Albumin, Blood 3.5 g/dL (3.4-5.0); Albumin/Globulin Ratio 1.1 (0.8-1.8); Alk Phos 56 U/L (50-136); Anion Gap 5 mmol/L (6-16); Aspartate Aminotrans (AST/SGOT 9 U/L (12-37); Bilirubin, Total 0.6 mg/dL (0.1-1.0); Blood Urea Nitrogen 12 mg/dL (8-24); Bun/Creatinine Ratio 13.8 (12.0-20.0); CO2, Blood 29 mmol/L (21-32); Calcium, Blood 8.6 mg/dL (8.5-10.1); Chloride, Blood 99 mmol/L (98-108); Creatinine, Blood 0.87 mg/dL (0.60-1.20); Globulin, Blood 3.3 g/dL (2.2-4.0); Glomerular Filtration Rate >60 (60-); Glucose, Blood 116 mg/dL (70-99); Potassium, Blood 3.8 mmol/L (3.5-5.5); Sodium, Blood 133 mmol/L (136-145); Total Protein, Blood 6.8 g/dL (6.4-8.2)
[2020-09-09 15:16] LABS: Valproic Acid 96.2 ug/mL (50.0-100.0)
--- NOTE | 2020-09-10 02:36 | NUR ---
ADMIT NOTE *LATE ENTRY* HANDOFF REPORT FROM ER NURSE SWATI. PT ARRIVED TO FLOOR VIA GURNEY. PERSONAL POSSESSIONS WITH PT. PT ORIENTED TO UNIT. IV FLUIDS INFUSING ORDERED. CALL BUTTON WITHIN REACH.
--- NOTE | 2020-09-10 04:19 | NUR ---
SHIFT SUMMARY ADMITTED FOR PNEUMONIA/SEPSIS. FULL CODE. PLAN IS FOR DC TOMORROW IF NO ADVERSE EVENTS OCCUR THIS SHIFT. OBS PT. HX: HIV/AIDS-DEMENTIA. HE IS ON RA AT HOME, 2 LPM O2 HERE. HE IS A 1 ASSIST W/BRP. IV FLUIDS INFUSING ORDERED. HE DOES FOLLOW INSTRUCTION, SOMEWHAT CONFUSED - BUT HE IS REDIRECTABLE.
[2020-09-10 05:14] LABS: Hematocrit 44.5 % (37.0-53.0); Hemoglobin 15.2 g/dL (13.5-17.5); Mean Corpuscular HGB 34.4 pg (26.0-34.0); Mean Corpuscular HGB Conc 34.2 g/dL (31.5-36.5); Mean Corpuscular Volume 101 fL (80-100); Mean Platelet Volume 10.7 fL (9.1-12.4); Platelet Count 157 K/mm3 (150-400); RDW Coefficient Variation 13.2 % (11.7-14.2); RDW Standard Deviation 49.3 fL (35.1-46.3); Red Blood Cell Count 4.42 M/mm3 (4.30-5.90); White Blood Cell Count 13.81 K/mm3 (4.00-11.30)
[2020-09-10 05:47] LABS: Anion Gap 6 mmol/L (6-16); Blood Urea Nitrogen 15 mg/dL (8-24); Bun/Creatinine Ratio 22.9 (12.0-20.0); CO2, Blood 27 mmol/L (21-32); Calcium, Blood 9.1 mg/dL (8.5-10.1); Chloride, Blood 106 mmol/L (98-108); Creatinine, Blood 0.65 mg/dL (0.60-1.20); Glomerular Filtration Rate >60 (60-); Glucose, Blood 151 mg/dL (70-99); Potassium, Blood 4.4 mmol/L (3.5-5.5); Sodium, Blood 139 mmol/L (136-145)
[2020-09-10] MEDS ORDERED: LEVOFLOXACIN750 MG PO (13:50)
[2020-09-10] MEDS ORDERED: MUCINEX600 MG PO (13:50)
[2020-09-10] MEDS ORDERED: VISBIOME 112.51 EACH PO (13:50)
[2020-09-10] MEDS ORDERED: ALBU90OI INH (13:51)
--- NOTE | 2020-09-10 15:32 | NUR ---
PT SLEEPING AT START OF SHIFT, BUT WOKE EASILY FOR REPORT. PT UP TO EOB FOR BREAKFAST, AND TAKING AM MEDS. PT THEN WENT BACK TO SLEEP. DR COYNE IN TO SEE PT LATER; PT KEEPING HIS EYES CLOSED WHILE TALKING TO DR COYNE. PT REPORTED THAT HE WAS TIRED. PT'S LABS AND VSS; SEE CHART. PER REPORT, PT TO D/C BACK TO HOME TODAY IF STABLE. HOME O2 EVAL ORDERED AND COMPLETE. PT ABLE TO AMBULATE IN HALLS ON RA, BUT DESATS TO 91% WITH EXERTION. 1L O2 ORDERED FOR HOME WITH EXERTION. PT UP TO BTHRM WITH SBA AND LATER INDEPENDENTLY. PT STATED TO DR COYNE THAT HE WANTED TO GO HOME AND COULD MANAGE ON HIS OWN. PT'S MOTHER CALLED TO CHECK ON PT; UPDATE GIVEN. PT'S MOTHER CALLED WHEN D/C COMPLETE. MEDS FAXED TO [facility] PER PT REQUEST. D/C INSTRUCTIONS DISCUSSED WITH PT; VERBALIZED UNDERSTANDING. PT ASSISTED OUT TO FAMILY, VIA W/C, WAITING AT ENTRANCE.
[2020-09-10 16:08] LABS: % CD 4 POS. LYMPH. 15.2 % (30.8-58.5); ABSOLUTE CD 4 HELPER 106 /uL (359-1519); BASOS 0 % (Not Estab.); EOS 0 % (Not Estab.); HEMATOCRIT 41.4 % (37.5-51.0); HEMOGLOBIN 14.6 g/dL (13.0-17.7); IMMATURE GRANULOCYTES 0 % (Not Estab.); LYMPHS 6 % (Not Estab.); LYMPHS (ABSOLUTE) 0.7 x10E3/uL (0.7-3.1); MCH 35.5 pg (26.6-33.0); MCHC 35.3 g/dL (31.5-35.7); MCV 101 fL (79-97); MONOCYTES 2 % (Not Estab.); MONOCYTES(ABSOLUTE) 0.2 x10E3/uL (0.1-0.9); NEUTROPHILS 92 % (Not Estab.); PLATELETS 152 x10E3/uL (150-450); RBC 4.11 x10E6/uL (4.14-5.80); WBC 11.9 x10E3/uL (3.4-10.8)
[2020-09-12 18:07] LABS: HIV-1 RNA BY PCR <20 (.)
== END 2020-09-10 14:46 | disposition home or self-care (01) ==
LOC: ER 12:06 → ERHOLD 12:07 → MEDS 20:32
PROVIDERS: Emergency Medicine; ADMIT Internal Medicine
DX: J18.9 Pneumonia, unspecified organism (principal); J44.9 Chronic obstructive pulmonary disease, unspecified; R09.02 Hypoxemia; B20 Human immunodeficiency virus [HIV] disease; F17.210 Nicotine dependence, cigarettes, uncomplicated; F43.10 Post-traumatic stress disorder, unspecified; I10 Essential (primary) hypertension; E78.5 Hyperlipidemia, unspecified; E03.9 Hypothyroidism, unspecified; F31.9 Bipolar disorder, unspecified; F02.80 Dementia in other diseases classified elsewhere, unspecified severity, without behavioral disturbance, psychotic disturbance, mood disturbance, and anxiety
CPT/HCPCS: 36415; 71046; 80048; 80053; 80164; 82140; 83605; 84145; 85025; 85027; 86361; 87040; 87536; 94640; 94760; 94761; 96365; 96366; 96375; 99285-25; A9270; G0378; J0456; J0696; J2930; J7030; J7050

== ENCOUNTER 2020-11-16 19:24 | Inpatient (IN) | payer OTHER, MEDICARE ==
[~2020-11-16] VITALS: Ht 170.2 cm; Wt 86.8 kg
[~2020-11-16 19:24] MED LIST changes: +LEVOFLOXACIN750 MG PO; +MUCINEX600 MG PO; +VISBIOME 112.51 EACH PO
[2020-11-16 19:50] LABS: Calcium, Ionized (POC) 1.02 mmol/L (1.10-1.46); Chloride (POC) 89 mmol/L (98-108); Creatinine (POC) 1.8 mg/dL (0.8-1.3); Glucose (ISTAT POC) 67 mg/dL (70-99); Hemoglobin (POC) 16.3 g/dL (13.5-17.5); Potassium (POC) 4.7 mmol/L (3.5-5.5); Sodium (POC) 119 mmol/L (135-148); Total CO2 (POC) 14 mmol/L (21-32)
[2020-11-16 20:13] LABS: Hematocrit 43.9 % (37.0-53.0); Mean Corpuscular HGB 34.6 pg (26.0-34.0); Mean Corpuscular HGB Conc 34.2 g/dL (31.5-36.5); Mean Corpuscular Volume 101 fL (80-100); Mean Platelet Volume 9.1 fL (9.1-12.4); RDW Coefficient Variation 11.8 % (11.7-14.2); RDW Standard Deviation 44.1 fL (35.1-46.3); Red Blood Cell Count 4.33 M/mm3 (4.30-5.90); White Blood Cell Count 6.39 K/mm3 (4.00-11.30)
[2020-11-16 20:17] LABS: Base Excess Venous -17.7 mmol/L; Bicarbonate Venous 11.3 mmol/L (24.0-30.0); PCO2 Venous 43.8 mmHg (38-42); PO2 Venous 40.5 mmHg (38-42); pH Blood Venous 7.06 (7.34-7.37)
[2020-11-16 20:25] LABS: Valproic Acid 106.5 ug/mL (50.0-100.0)
[2020-11-16 20:26] LABS: Magnesium, Blood 2.6 mg/dL (1.6-2.4); Thyroid Stimulating Hormone 1.91 uIU/mL (0.360-4.800)
[2020-11-16 20:27] LABS: Platelet Count 3 K/mm3 (150-400)
[2020-11-16 20:28] LABS: BAND PERCENT MAN 23 % (0-8); BASOPHILS ABSOLUTE MAN 0.06 K/mm3 (0.00-0.23); BASOPHILS PERCENT MAN 1 % (0-2); EOSINOPHILS PERCENT MAN 0 % (0-6); LYMPHOCYTES ABSOLUTE MAN 0.44 K/mm3 (0.84-5.20); LYMPHOCYTES PERCENT MAN 7 % (21-46); METAMYELOCYTE ABSOLUTE MAN 0.06 K/mm3 (0.00-0.00); METAMYELOCYTE PERCENT MAN 1 % (0-0); MONOCYTES ABSOLUTE MAN 0.25 K/mm3 (0.16-1.47); MONOCYTES PERCENT MAN 4 % (4-13); NEUTROPHILS ABSOLUTE MAN 5.55 K/mm3 (1.96-9.15); SEG NEUTROPHILS PERCENT MAN 64 % (41-73); TOTAL CELLS COUNTED 100
[2020-11-16 20:44] LABS: Albumin, Blood 3.6 g/dL (3.4-5.0); Albumin/Globulin Ratio 1.3 (0.8-1.8); Bun/Creatinine Ratio 12.8 (12.0-20.0); Calcium, Blood 8.7 mg/dL (8.5-10.1); Creatinine, Blood 1.33 mg/dL (0.60-1.20); Globulin, Blood 2.8 g/dL (2.2-4.0); Potassium, Blood 4.3 mmol/L (3.5-5.5); Total Protein, Blood 6.4 g/dL (6.4-8.2)
[2020-11-16 21:04] LABS: Source, Urine Catheter
[2020-11-16 21:07] LABS: Appearance, Urine Clear (Clear); Bilirubin, Urine Neg (Neg); Blood, Urine 1+ (Neg); Color, Urine Yellow (P-Yellow); Glucose Qualitative, Urine Neg (Neg); Ketones, Urine 2+ (Neg); Leukocyte Esterase, Urine Neg (Neg); Nitrite, Urine Neg (Neg); Protein, Urine 1+ (Neg); Urobilinogen, Urine 1+ (Normal)
[2020-11-16 21:14] LABS: Bacteria Few /hpf
[2020-11-16 21:15] LABS: Red Blood Cells, Urine 0-2 /hpf (0-2); Squamous Epithelial Cells Rare /hpf (Few); White Blood Cells, Urine 0-2 /hpf (0-5)
[2020-11-16 21:18] LABS: U Amphetamine Screen Not Detected; U Barbituate Screen Not Detected; U Benzodiazapine Screen Not Detected; U Buprenorphine Screen Not Detected; U Cannabinoids Screen DETECTED; U Cocaine Screen Not Detected; U Methadone Screen Not Detected; U Methamphetamine Screen Not Detected; U Opiates Screen Not Detected; U Oxycodone Screen Not Detected; U Phencyclidine Screen Not Detected; U Propoxyphene Screen Not Detected
[2020-11-16 21:22] LABS: International Normalized Ratio 2.39; Prothrombin Time Results 24.6 Sec (9.7-11.5)
[2020-11-16 21:45] LABS: SARS-Cov-2 (COVID-19) PCR, MMC NEGATIVE (NEGATIVE)
[2020-11-16 22:01] LABS: PCO2 Arterial 33.2 mmHg (35-45); PO2 Arterial 65.5 mmHg (80-100); pH Blood Arterial 7.21 (7.35-7.45)
[2020-11-16 22:22] LABS: Prolactin 107.5 ng/mL (2.5-17.4); Troponin I 0.442 ng/mL (0.000-0.040)
[2020-11-17 00:08] LABS: Hematocrit 32.2 % (37.0-53.0); Hemoglobin 11.4 g/dL (13.5-17.5); Mean Corpuscular HGB 34.9 pg (26.0-34.0); Mean Corpuscular HGB Conc 35.4 g/dL (31.5-36.5); Mean Corpuscular Volume 99 fL (80-100); Mean Platelet Volume 11.7 fL (9.1-12.4); RDW Coefficient Variation 11.9 % (11.7-14.2); RDW Standard Deviation 43.1 fL (35.1-46.3); Red Blood Cell Count 3.27 M/mm3 (4.30-5.90); White Blood Cell Count 1.08 K/mm3 (4.00-11.30)
[2020-11-17 00:12] LABS: Platelet Count 6 K/mm3 (150-400)
[2020-11-17 00:25] LABS: Alanine Aminotransfer (ALT/SGP 617 U/L (12-78); Albumin, Blood 2.9 g/dL (3.4-5.0); Albumin/Globulin Ratio 1.4 (0.8-1.8); Alk Phos 54 U/L (50-136); Anion Gap 16 mmol/L (6-16); Aspartate Aminotrans (AST/SGOT 920 U/L (12-37); Bilirubin, Total 1.3 mg/dL (0.1-1.0); Blood Urea Nitrogen 16 mg/dL (8-24); Bun/Creatinine Ratio 12.5 (12.0-20.0); CO2, Blood 19 mmol/L (21-32); Calcium, Blood 7.2 mg/dL (8.5-10.1); Chloride, Blood 91 mmol/L (98-108); Creatinine, Blood 1.28 mg/dL (0.60-1.20); Glomerular Filtration Rate >60 (60-); Glucose, Blood 71 mg/dL (70-99); Potassium, Blood 3.6 mmol/L (3.5-5.5); Sodium, Blood 126 mmol/L (136-145); Total Protein, Blood 4.9 g/dL (6.4-8.2)
--- NOTE | 2020-11-17 00:35 | NUR ---
ASSUMED PT CARE FROM ED AT 2300 PT ARRIVED ALERT TO PERSON, AND PLACE. HE HAS A "WET" GURGLE SOUNDING RESPIRATORY PATTERN. LUNG SOUNDS ARE COARSE T/O WITH EXPIRATORY WHEEZES NOTED TO BILATERAL LOWER LOBES. PT ON 8L OF HIFLOW OXYGEN WITH OXYGEN SATURATIONS 86%; PT INCREASED TO 15L HIFLOW WITH SPO2 95%. RAPID RESP RATE 20-30'S. PT HYPOTENSIVE UPON ADMIT WITH SBP 80S DESPITE NS INFUSING WO. TACHYCARDIA NOTED WITH HR 120'S; SINUS RHYTHM. ABDOMEN IS SEVERELY DISTENDED AND FIRM UPON PALPATION; HYPOACTIVE TONES NOTED. PT C/O NEED TO URINATE; HOWEVER, VILLEGAS CATHETER IS IN PLACE AND DRAINING MODERATE AMOUNTS OF DARK TEA COLORED URINE TO GRAVITY. PT CONTINUES TO BE SEVERELY CONFUSED AND NOTED TO BE PULLING AT LINES AND TUBES, WELL ATTEMPTING TO EXIT BED; THEREFORE, PT PLACED IN BILATERAL SOFT WRIST RESTRAINTS. DR. VALLE AT BEDSIDE SHORTLY AFTER ARRIVAL TO UNIT TO DISCUSS PLAN OF CARE WITH FAMILY. FAMILY WISHES THAT NO HEROIC MEASURES BE TAKEN; HOWEVER, THEY ALSO UNDERSTAND THAT HIS CONDITION COULD WORSEN AND BE THE RESULT OF HIS DEMISE. DISCUSSED PLAN OF CARE WITH FAMILY AND DR. VALLE; GOAL IS TO MAKE PT COMFORTABLE HE CAN BE WITH CONTINUING MEDICAL MANAGEMENT WITH TREATMENT IN THE SENSE OF IV FLUIDS. FAMILY WISHES FOR PT TO BE DNR/DNI WITH NO INVASIVE PROCEDURES, SUCH CENTRAL LINE PLACEMENT OR VASOPRESSORS. PT CHANGED FROM ICU STATUS TO MEDICAL FLOOR WITHOUT TELEMETRY PER DR. VALLE. FAMILY IS AT BEDSIDE AT THIS TIME AND ARE IN AGREEMENT WITH PLAN OF CARE. PT MEDICATED WITH ROXONAL, ATIVAN, AND FENTANYL FOR COMFORT, WHICH APPEAR EFFECTIVE HE IS NO LONGER ATTEMPTING TO CRAWL OUT OF BED. WILL CONTINUE TO MONITOR AT THIS TIME.
[2020-11-17 00:41] LABS: BAND PERCENT MAN 26 % (0-8); BASOPHILS PERCENT MAN 0 % (0-2); EOSINOPHILS PERCENT MAN 0 % (0-6); LYMPHOCYTES % ATYPICAL MANUAL 2 % (0-0); LYMPHOCYTES ABSOLUTE MAN 0.17 K/mm3 (0.84-5.20); LYMPHOCYTES PERCENT MAN 14 % (21-46); METAMYELOCYTE ABSOLUTE MAN 0.02 K/mm3 (0.00-0.00); METAMYELOCYTE PERCENT MAN 2 % (0-0); MONOCYTES ABSOLUTE MAN 0.12 K/mm3 (0.16-1.47); MONOCYTES PERCENT MAN 12 % (4-13); NEUTROPHILS ABSOLUTE MAN 0.75 K/mm3 (1.96-9.15); SEG NEUTROPHILS PERCENT MAN 44 % (41-73); TOTAL CELLS COUNTED 50
[2020-11-17 02:18] LABS: Acetaminophen, Random 162.9 ug/mL (10.0-30.0)
--- NOTE | 2020-11-17 02:56 | NUR ---
ACETAMINOPHEN LEVEL CALL TO DR. VALLE REGARDING CRITICAL ACETAMINOPHEN LEVEL. NEW ORDERS FOR ACEYLCYSTEINE PER PHARMACY CONSULT. CALL MADE TO POISON CONTROL WITH NO FURTHER RECOMMENDATIONS OTHER THAN AN ASA LEVEL; HOWEVER, DR. VALLE INFORMED ME THAT NO FURTHER MEASURES NEEDED TO BE TAKEN IT WILL NOT CHANGE THE COURSE OF TREATMENT FOR THIS PATIENT.
[2020-11-17 06:16] LABS: Hematocrit 26.4 % (37.0-53.0); Hemoglobin 9.6 g/dL (13.5-17.5); Mean Corpuscular HGB 35.3 pg (26.0-34.0); Mean Corpuscular HGB Conc 36.4 g/dL (31.5-36.5); Mean Corpuscular Volume 97 fL (80-100); Mean Platelet Volume 10.9 fL (9.1-12.4); RDW Standard Deviation 42.8 fL (35.1-46.3); Red Blood Cell Count 2.72 M/mm3 (4.30-5.90); White Blood Cell Count 1.75 K/mm3 (4.00-11.30)
[2020-11-17 06:20] LABS: Platelet Count 6 K/mm3 (150-400)
[2020-11-17 06:36] LABS: BAND PERCENT MAN 30 % (0-8); BASOPHILS PERCENT MAN 0 % (0-2); EOSINOPHILS PERCENT MAN 0 % (0-6); LYMPHOCYTES ABSOLUTE MAN 0.45 K/mm3 (0.84-5.20); LYMPHOCYTES PERCENT MAN 26 % (21-46); MONOCYTES ABSOLUTE MAN 0.01 K/mm3 (0.16-1.47); MONOCYTES PERCENT MAN 1 % (4-13); MYELOCYTE ABSOLUTE MAN 0.01 K/mm3 (0.00-0.00); MYELOCYTE PERCENT MAN 1 % (0-0); NEUTROPHILS ABSOLUTE MAN 1.26 K/mm3 (1.96-9.15); SEG NEUTROPHILS PERCENT MAN 42 % (41-73); TOTAL CELLS COUNTED 100
[2020-11-17 06:57] LABS: Alanine Aminotransfer (ALT/SGP 617 U/L (12-78); Albumin, Blood 2.5 g/dL (3.4-5.0); Albumin/Globulin Ratio 1.2 (0.8-1.8); Alk Phos 44 U/L (50-136); Anion Gap 16 mmol/L (6-16); Aspartate Aminotrans (AST/SGOT 1078 U/L (12-37); Bilirubin, Total 1.3 mg/dL (0.1-1.0); Blood Urea Nitrogen 19 mg/dL (8-24); Bun/Creatinine Ratio 16.8 (12.0-20.0); CO2, Blood 22 mmol/L (21-32); Calcium, Blood 6.7 mg/dL (8.5-10.1); Chloride, Blood 90 mmol/L (98-108); Creatinine, Blood 1.13 mg/dL (0.60-1.20); Glomerular Filtration Rate >60 (60-); Glucose, Blood 113 mg/dL (70-99); Potassium, Blood 3.6 mmol/L (3.5-5.5); Sodium, Blood 128 mmol/L (136-145); Total Protein, Blood 4.5 g/dL (6.4-8.2)
--- NOTE | 2020-11-17 07:25 | NUR ---
END OF SHIFT SUMMARY NIGHT HAS PROGRESSED, PT NEUROLOGICAL RESPONSES DECLINED AND HE IS NOW ONLY RESPONSIVE TO PAINFUL STIMULI. PT BEGAN BEING MEDICATED FOR COMFORT WITHIN KEEPING VS STABLE, BUT IS NOW FULL COMFORT CARE WITH FAMILY AND DR. SPANN NOTIFIED BY DAY RN. PT INITIALLY ON HIFLO NC @ 15LPM, BUT SPO2 DECREASED TO MID 80'S SO SWITCHED TO NONREBREATHER AT 15LPM WITH SPO2 NOW IN THE HIGH 80'S. AUDIBLE WET/GARGLE WITH ACCESSORY MUSCLE USE AND RR IN 30'S. SCATTERED PETECHIAE PRESENT WITH MOTTLING OF KNEES. REPORT HANDED OFF TO KAYA SCHREIBER.
--- NOTE | 2020-11-17 07:40 | NUR ---
HAND KISS SETTER DOCUMENTATION REVIEW I HAVE READ AND AGREE WITH ALL NOTES ENTERED BY FOR THIS SHIFT.
--- NOTE | 2020-11-17 07:45 | NUR ---
SPOKE WITH PT MOTHER AT 0730 AND PT MADE COMFORT CARE. IVF AND NAC DRIP DISCONTINUED. PT AUDIBLE MOIST, AND RESPIIRATIONS TACHYPNEIC. PT NOTED TO BE PALE AND DIAPHORETIC. EXTREMITIES MOTTLED. RN LEFT THE ROOM TO PREPARE MEDS FOR AIR HUNGER. UPON RETURN TO THE ROOM, FOUND THAT PT HAD VOMITED AND WAS APNEIC. PT AT 0745. POST MORTUM CARE PROVIDED. PT MOTHER UPDATED. DR. SPANN AWARE.
== END 2020-11-17 07:45 | DRG 974 ==
LOC: ER 19:24 → ICUW 21:46 → ICUE 21:46
PROVIDERS: Emergency Medicine; Nurse Practitioner Acute Care; ADMIT Internal Medicine
PROC: 30233R1 Transfusion of Nonautologous Platelets into Peripheral Vein, Percutaneous Approach (ICD-10-PCS; principal; 2020-11-16)
DX: A41.9 Sepsis, unspecified organism (principal); G92 Toxic encephalopathy; B20 Human immunodeficiency virus [HIV] disease; J18.9 Pneumonia, unspecified organism; Z66 Do not resuscitate; Z51.5 Encounter for palliative care; K72.00 Acute and subacute hepatic failure without coma; R65.21 Severe sepsis with septic shock; J44.0 Chronic obstructive pulmonary disease with (acute) lower respiratory infection; E87.2 Acidosis; C81.70 Other Hodgkin lymphoma, unspecified site; I24.8 Other forms of acute ischemic heart disease; Z20.822 Contact with and (suspected) exposure to COVID-19; E16.2 Hypoglycemia, unspecified; E83.51 Hypocalcemia; F02.80 Dementia in other diseases classified elsewhere, unspecified severity, without behavioral disturbance, psychotic disturbance, mood disturbance, and anxiety; F31.9 Bipolar disorder, unspecified; I10 Essential (primary) hypertension; E78.5 Hyperlipidemia, unspecified; F41.9 Anxiety disorder, unspecified; E03.9 Hypothyroidism, unspecified; F43.10 Post-traumatic stress disorder, unspecified; Z90.89 Acquired absence of other organs; Z88.5 Allergy status to narcotic agent; Z88.8 Allergy status to other drugs, medicaments and biological substances; Z98.890 Other specified postprocedural states
CPT/HCPCS: 36415; 36430; 36600; 51702; 70450; 71045; 74176; 80047; 80053; 80164; 81001; 82140; 82803; 83605; 83735; 83880; 84145; 84146; 84443; 84484; 85014; 85025; 85610; 85730; 86850; 86900; 86901; 87040; 93005; 93010; 96365-59; 96366-59; 96367-59; 96368; 96372-59; 96375-59; 99285-25; A9270; G0480; J0132; J0696; J2060; J2310; J2543; J2930; J3010; J3411; J7030; J7060; J7070; P9035; P9046; P9059; U0004